=== PATIENT | female | born 1965 | race Caucasian/White ===

== ENCOUNTER → 2017-04-15 | Outpatient (CLI) | payer BC, OTHER | END | disposition home or self-care (01) | LOC: C.RDSM 18:53 | PROVIDERS: ATTEND Physical Medicine & Rehabilitation Sports Medicine | DX: M25.561 Pain in right knee (principal) ==

== ENCOUNTER 2019-02-02 04:56 | Inpatient (IN) ==
--- NOTE | 2018-12-29 15:30 | PAT Medication Instructions ---
Medication Instructions Date of Service December 29, 2018 Home Medications Calcium 1 tab PO BID [id number]-eazakvrceogdv-[id number] 1 cap PO Q6H PRN cyanocobalamin (vitamin B-12) 5,000 mcg PO WK fentanyl 1 patch TRANSDERMAL Q72H fentanyl 1 patch TRANSDERMAL Q72H furosemide 20 mg PO QAM PRN hydrocodone-acetaminophen 1 tab PO Q6H PRN lisinopril 10 mg PO QAM multivitamin 1 tab PO BID pantoprazole 40 mg PO QPM potassium chloride 20 meq PO BID topiramate 100 mg PO BID Continue as directed fentanyl 1 patch TRANSDERMAL Q72H (avoid placement over surgery site) fentanyl 1 patch TRANSDERMAL Q72H(avoid placement over surgery site) ASK your surgeon for instructions cngjzszoeh-clfttmxeygfzk-wada 1 cap PO Q6H PRN DO NOT take the morning of surgery Calcium 1 tab PO BID cyanocobalamin (vitamin B-12) 5,000 mcg PO WK furosemide 20 mg PO QAM PRN lisinopril 10 mg PO QAM multivitamin 1 tab PO BID potassium chloride 20 meq PO BID Take morning of surgery With a small sip of water, OTHERWISE NOTHING TO EAT OR DRINK AFTER MIDNIGHT: hydrocodone-acetaminophen 1 tab PO Q6H PRN (okay to take up to 4 hours prior to surgery if needed) topiramate 100 mg PO BID Take evening before surgery Calcium 1 tab PO BID hydrocodone-acetaminophen 1 tab PO Q6H PRN (if needed) multivitamin 1 tab PO BID pantoprazole 40 mg PO QPM potassium chloride 20 meq PO BID topiramate 100 mg PO BID Other Notes If you have any questions please call us at [phone] or [phone] or [phone] or [phone]
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
--- NOTE | 2018-12-30 12:38 | XRay Report ---
XR chest Pre-admission PA/Lat CLINICAL HISTORY: Preoperative chest COMPARISON STUDY: No previous studies for comparison. FINDINGS: The heart is normal in size. There is mild elevation/eventration of the left hemidiaphragm posteriorly. There is minor basilar atelectasis/scarring. There is no failure. There are no areas of parenchymal consolidation to indicate pneumonia. There are no significant pleural effusions. IMPRESSION: No active disease in the chest. Electronically signed by: Rosas Woods M.D. 12/30/2018 12:37 PM
[2018-12-30 13:07] LABS: Basophils # (auto) 0.03 K/uL (0-0.2); Basophils % (auto) 0.5 %; Eosinophils # (auto) 0.17 K/uL (0-0.5); Eosinophils % (auto) 2.8 %; Hematocrit (blood only) 41.7 % (37-47); Hemoglobin 13.8 g/dL (12.0-16.0); Immature Granulocytes # (auto) 0.01 K/uL (0.00-0.02); Immature Granulocytes % (auto) 0.2 %; Lymphocytes # (auto) 2.66 K/uL (1.2-3.4); Lymphocytes % (auto) 43.2 %; Mean Corpuscular Hemoglobin 30.6 pg (25-34); Mean Corpuscular Hgb Conc 33.1 g/dL (32-36); Mean Corpuscular Volume 92.5 fL (80-100); Mean Platelet Volume 9.6 fL (7.4-10.4); Monocytes # (auto) 0.34 K/uL (0.11-0.59); Monocytes % (auto) 5.5 %; Neutrophils # (auto) 2.95 K/uL (1.4-6.5); Neutrophils % (auto) 47.8 %; Platelet Count 261 K/uL (130-400); RDW Coefficient of Variation 12.9 % (11.5-14.5); RDW Standard Deviation 43.4 fL (36.4-46.3); Red Blood Count 4.51 M/uL (4.2-5.4); White Blood Count 6.16 K/uL (4.8-10.8)
[2018-12-30 13:12] LABS: Appearance Urine Clear (Clear); Bilirubin Urine Negative (Negative); Blood Urine Negative (Negative); Color Urine Yellow; Glucose Urine UA Negative (Negative); Ketones Urine Negative (Negative); Leukocyte Esterase Urine Negative (Negative); Nitrite Urine Negative (Negative); Protein Urine Negative (Negative); Urobilinogen Urine Negative (Negative)
[2018-12-30 13:14] LABS: Albumin Level 3.5 gm/dl (3.4-5.0); BUN Creatinine Ratio 18.7 (10-20); Creatinine Clr Calc Pharmacy 54.9 ml/min; Est GFR (African American) 56.1; Est GFR (Non-African American) 48.4
[2018-12-30 13:17] LABS: Estimated Average Glucose 103 mg/dl; Hemoglobin A1C 5.2 % (4.5-5.6)
[2018-12-30 13:27] LABS: Partial Thromboplastin Ratio 1.1; Partial Thromboplastin Time 30.2 Seconds (21.0-31.0); Prothrombin Time 10.7 Seconds (9.0-12.0)
--- NOTE | 2019-02-01 21:41 | History and Physical Report ---
DATE OF ADMISSION: 02/02/2019 CHIEF COMPLAINT: Chronic right knee pain. HISTORY OF PRESENT ILLNESS: This is a 53-year-old female patient of Dr. Quintanilla'juan carlos complaining of chronic right knee pain, longstanding, now progressively getting worse. The patient has failed conservative treatment including intra-articular injections, viscosupplementation, home exercise program and the use of a brace. The patient has increased pain with weightbearing activities and her pain does interfere with her activities of daily living. The patient has been diagnosed with end-stage osteoarthritis per clinical and radiographic exams. The patient wished to proceed with a right total knee arthroplasty. PAST MEDICAL HISTORY: History of DVT, sciatica, acid reflux, obesity, dental issues, nonfunctioning left kidney. SOCIAL HISTORY: Nonsmoker, nondrinker. PAST SURGICAL HISTORY: Cholecystectomy and hysterectomy. FAMILY HISTORY: Noncontributory. REVIEW OF SYSTEMS: Chronic right knee pain, otherwise denies any shortness of breath, chest pain, nausea, vomiting or any other joint complaints. MEDICATIONS: 1. Fentanyl patch 100 mcg per hour 1 patch every 72 hours for pain. 2. Fentanyl patch 50 mcg per hour 1 patch every 3 days as needed. 3. Somis every 8 hours as needed. 4. Lisinopril 10 mg daily. 5. Potassium chloride 20 mEq twice daily. 6. Topamax 100 mg 1 twice daily. 7. Fioricet 50/325/40 mg 1 tablet every 4 hours as needed for headaches. 8. Protonix 40 mg twice daily. 9. Omeprazole 20 mg daily. 10. Colace 100 mg daily. 11. Nystop applied to affected area topically 3 times daily. 12. Lasix 20 mg 1-2 tablets as needed. 13. Cymbalta 30 mg daily. 14. Nystatin 100,000 units per gram apply topically to affected area twice daily. 15. Vitamin B12 1000 mcg daily, sublingual. ALLERGIES: No known drug allergies. PHYSICAL EXAMINATION: GENERAL: Well-developed, well-nourished, 53-year-old female in no acute distress. She is alert and oriented x3 and pleasant. HEENT: Normocephalic, atraumatic. Extraocular motions are intact. Pupils are equal and reactive to light. HEART: Regular rate and rhythm, no murmurs. LUNGS: Clear. ABDOMEN: Soft and nontender. Bowel sounds present. EXTREMITIES: Right knee limited range of motion of negative 10-120 degrees. She has a varus deformity with medial joint line tenderness. She has crepitation and pain with range of motion. She has 5/5 strength. NEUROLOGIC: Neurovascularly, she is intact in her right lower extremity. DIAGNOSES: Right knee end-stage osteoarthritis, history of deep venous thrombosis, sciatica, acid reflux, obesity, dental issues, and a nonfunctioning left kidney. PLAN: The patient was advised of her diagnosis. Indications, risks, benefits, postop course have all been reviewed. The patient wished to proceed with a right total knee arthroplasty. Necessary consent forms, preoperative testing and clearances will be obtained.
[2019-02-02] MEDS ORDERED: FAMOTIDINE 20 MG TAB PO SCH (06:00)
[2019-02-02] MEDS ORDERED: GABAPENTIN 600 MG DOSE PO SCH (06:00)
[2019-02-02] MEDS ORDERED: METOCLOPRAMIDE HCL 10 MG TABLET PO SCH (06:00)
[2019-02-02] MEDS ORDERED: ROPIVACAINE 0.5% HCL/PF 150 MG, BUPIVACAINE 0.5% MPF 30 ML, EPINEPHrine 30MG/30ML (OR U... INFIL SCH (06:00)
[2019-02-02] MEDS ORDERED: dexAMETHasone 4 MG TAB PO SCH (06:00)
[2019-02-02] MEDS ORDERED: LR 500ML BOLUS, THEN 15ML/HR IV SCH (06:00)
[2019-02-02] MEDS ORDERED: ACETAMINOPHEN 500 MG TAB PO SCH (06:00)
[2019-02-02] MEDS ORDERED: CEFAZOLIN 2000MG 2,000 MG/15 ML SYR IV SCH (06:00)
[2019-02-02] MEDS ORDERED: MIDAZOLAM HCL 1 MG/ML 2ML VIAL ONE ×2 (06:35→07:11)
[2019-02-02] MEDS ORDERED: fentaNYL citrate 100 MCG/2 ML VIAL ONE (06:35)
[2019-02-02] MEDS ORDERED: ONDANSETRON INJ 2 MG/ML 2 ML VIAL IV PRN ×2 (06:38→10:56)
[2019-02-02] MEDS ORDERED: fentaNYL citrate 100 MCG/2 ML VIAL IV PRN (06:38)
[2019-02-02] MEDS ORDERED: ATROPINE SULFATE 0.1 MG/ML 10ML SYR IV PRN (06:38)
[2019-02-02] MEDS ORDERED: ePHEDrine sulfate 50 MG/ML AMP IV PRN (06:38)
[2019-02-02] MEDS ORDERED: BUPIVACAINE 0.5 % 5 MG/1 ML PF 10ML VIAL ONE (06:39)
[2019-02-02] MEDS ORDERED: BACITRACIN INJ 50,000 UNIT VIAL ONE (06:42)
[2019-02-02] MEDS ORDERED: ORTHO JOINT ANESTHETIC ONE (06:42)
[2019-02-02] MEDS ORDERED: ONDANSETRON INJ 2 MG/ML 2 ML VIAL ONE (06:43)
[2019-02-02] MEDS ORDERED: PROPOFOL IV EMULSION 10 MG/ML 20 ML VIAL IV ONE (06:43)
[2019-02-02] MEDS ORDERED: LIDOCAINE HCL 2% 2 ML VIAL/AMP(20MG/ML) INFIL ONE (06:43)
--- NOTE | 2019-02-02 07:08 | History & Physical Bridge Note ---
Date of Service February 02, 2019 History & Physical Bridge Note I have examined the patient, reviewed the History & Physical and in the interval since the performance of the History & Physical I have noted the following changes of clinical significance: no changes noted
[2019-02-02] MEDS ORDERED: KETAMINE HCL INJ 50 MG/ML 10 ML VIAL ONE (07:28)
--- NOTE | 2019-02-02 08:54 | Post Operative Brief Note ---
Immediate Post Op Note v1 Date of Surgery February 02, 2019 Pre & Post Diagnosis Operation Date: 02/02/19 07:00 Pre-Op Diagnosis: RIGHT KNEE OSTEOARTHRITIS, obesity BMI 38.3 Post-Op Diagnosis: RIGHT KNEE OSTEOARTHRITIS, obesity BMI 38.3 I identified the patient and participated in the time-out.: Yes Procedure Operation Date: 02/02/19 07:00 Actual Procedures p Right Total Knee Arthroplasty(Right), superficial wound VAC, increased difficulty BMI 38.3- Bryce Quintanilla MD Surgeon Bryce Quintanilla MD Flavoring Machine Operator Jaime BARNES Estimated Blood Loss 5 Findings Consistent with Post-Op Diagnosis Specimens Bone cuts Drains Hemovac Drain Anesthesia Type MAC Spinal Regional Complications none Disposition Accompanied Patient To Recovery: No Disposition: Recovery Room Overlapping Procedure I was present for: the critical portions of procedure.
--- NOTE | 2019-02-02 09:11 | Operative Report ---
Post Operative Report Pre & Post Diagnosis Operation Date: 02/02/19 07:00 Pre-Op Diagnosis: RIGHT KNEE OSTEOARTHRITIS, obesity BMI 38.3, lymphedema chronic Post-Op Diagnosis: RIGHT KNEE OSTEOARTHRITIS, obesity BMI 38.3, lymphedema chronic I identified the patient and participated in the time-out.: Yes Procedure Operation Date: 02/02/19 07:00 Actual Procedures p Right Total Knee Arthroplasty(Right), superficial wound VAC, increased difficulty obesity BMI 38.3- Bryce Quintanilla MD Surgeon Bryce Quintanilla MD Mechanic Foreman Jaime BARNES Estimated Blood Loss 5 Findings Consistent with Post-Op Diagnosis Specimens Bone cuts Drains 2 Hemovac Anesthesia Type MAC Spinal Regional Complications none Disposition Accompanied Patient To Recovery: No Disposition: Recovery Room Indications 53-year-old female history of obesity lymphedema both lower extremities. Patient's diet lost weight get her BMI under 40. Still has obesity of her legs and chronic lymph edema both lower extremities. Does have a history of DVT in the past. She has very severe osteoarthritis [id number] bilateral knees medial compartment OA right knee and patellofemoral osteoarthritis with tricompartmental changes subluxation of femur on the tibia subchondral cystic changes medial compartment. Description of Procedure Patient taken to the operating room the size under spinal MAC regional anesthesia. Patient was placed supine on the operating table. A pneumatic tourniquet was placed about the obese right upper thigh. The right lower extremity was prepped and draped in sterile fashion. Knee exam demonstrated 5- 115 degrees range of motion. No instability. Obesity with lymphedema below the knee mainly both lower extremities. The leg was elevated exsanguinated with an Esmarch bandage and pneumatic tourniquet was raised to 350 millimeters of mercury. Skin incised sharply in longitudinal fashion. Subcutaneous flaps tres vated. Incision was made through the medial retinaculum extending up in the mid third of the quadriceps tendon and down to the medial tibial tubercle. Intra- articular findings demonstrated tricompartmental osteoarthritis [id number] medial compartment with large subchondral cystic changes in the femur and the tibia large loose body anterior tibial spine. The Really Simple triathlon total knee arthroplasty system was used. To expose the knee the infrapatellar fat pad was resected. The meniscal remnants and cruciate ligaments were resected. The anterior fat pad over the femur in the area of the anterior flange of the femoral component was resected. Lateral synovial bands release. The femur was exposed. An intramedullary drill hole was made into the canal. A guide daren was placed. Distal femoral cutting guide was adjusted to resect a 5 degree valgus cut with 10 millimeters distal femur resected. The knee was extended and a subperiosteal peel lateral release was performed around the patella. Patella width was measured and width was reproduced using a freehand cut technique and a 31 symmetrical patella component. The 3 drill holes were made and the excess lateral facet was beveled off to prevent any impingement. Attention was taken back to the femur which was exposed with retractors and the femoral sizing guide was pinned in position. The drill holes were placed in 3 of external rotation to match epicondylar axis. Femur sized for a 4 component. The 4-in-1 cutting block was placed and then the anterior posterior and chamfer cuts are made. The tibia was then subluxed. The external tibial cutting guide was just to make a perpendicular cut to the long axis of the tibia below the most deficient bone loss side. A lamina spreader box operator was used and the flexion extension gaps were balanced. All posterior osteophytes removed. All meniscal remnants were resected. The large cysts in the medial femoral condyle and the tibia anterior medially were curetted out. The tibia exposed and the trial tibial component size 3 was externally rotated in line with the tibial tubercle and pinned in position. The punch for stem was used. The notch cutting device was centered appropriately and the femoral notch cut was made. The femoral trial was inserted. Trial tibial inserts were placed and size 11 gave balanced ligaments through flexion and extension. Patella tracking was assessed. The patella tracked centrally. The trial components were then removed and the orthomix anesthetic cocktail was injected per protocol. The knee was then copiously irrigated with pulsatile lavage antibiotic solution. Final components were then cemented with Simplex cement including cementing the bone cysts. Final components were size 4 posterior stabilized right [place] triathlon femoral component, size 3 primary tibial baseplate, 3 x 11 mm X3 polyethylene tibial bearing insert, S 31 x 9 mm symmetrical patella. While the cement cured the Betadine soak was used per protocol. After cement cured further pulsatile lavage irrigation performed and 2 Hemovac drains were brought out laterally. The quadriceps tendon and medial retinaculum were closed with figure of 8 #1 Vicryl sutures. The knee was taken through full range of motion and the repair was secure. The subcutaneous tissues were closed with 2-0 Vicryl sutures. Skin was closed with shasha. A Julianna superficial wound VAC was applied applied. Patient procedure well. Jaime BARNES was my physician library media assistant who assisted in patient positioning prepping and draping,leg positioning ,soft tissue retraction and instrument management and participated in the closing and application superficial wound VAC and will participate in postoperative care of the patient. It was an increased level difficulty due to her obesity which added about 15 to 20 minutes of the procedure. The patient tolerated the procedure well. I attest to the content of the Intraoperative Record and any orders documented therein. Any exceptions are noted below.
[2019-02-02] MEDS ORDERED: CONSULT PHARMACY PRN (09:30)
--- NOTE | 2019-02-02 09:56 | XRay Report ---
XR knee RT 1 or 2V routine HISTORY: 53 years-old Female Surgical Post Op right knee total joint arthroplasty COMPARISON: Right knee radiographs 04/15/2017 TECHNIQUE: 2 views of the right knee FINDINGS: Right knee total joint arthroplasty and patella resurfacing. Anterior midline skin shasha are noted along with expected postsurgical soft tissue swelling and deep tissue air. Surgical drainage catheter noted. No acute fracture, dislocation or opaque foreign body. IMPRESSION: Satisfactory alignment of the right knee total joint arthroplasty. The above report was generated using voice recognition software. It may contain grammatical, syntax o r spelling errors. Electronically signed by: Jarad Chowdhury M.D. 02/02/2019 9:54 AM
--- NOTE | 2019-02-02 10:26 | Anesthesiology Progress Note ---
Date of Service February 02, 2019 Anesthesia Post Procedure Vital Signs Vital Signs: Temp Pulse Pulse Resp BP Pulse Ox 02/02/19 10:15 97.5 F L 70 12 129/74 98 02/02/19 10:05 97.5 F L 71 16 133/85 95 02/02/19 09:54 80 12 156/84 H 96 02/02/19 09:45 83 12 146/85 H 96 02/02/19 09:35 85 12 149/82 H 96 02/02/19 09:25 83 13 131/75 97 02/02/19 09:17 97.2 F L 88 16 134/80 94 02/02/19 05:30 97.7 F 66 20 143/87 H 98 Pain Intensity Right Knee: Pain Intensity: 0 Lower Back: Pain Intensity: 5 Transfer of Care Handoff Completed per policy Notes Mental Status: alert / awake / arousable and participated in evaluation Patient Amnestic to Procedure: Yes Nausea / Vomiting: adequately controlled Pain: adequately controlled Airway Patency, RR, SpO2: stable & adequate BP & HR: stable & adequate Hydration State: stable & adequate Neuraxial Anesthesia: was administered and sensory block is resolving Anesthetic Complications: no major complications apparent and Pt Satisfied with anesthetic care
[2019-02-02] MEDS ORDERED: SODIUM CHLORIDE 0.9% 1000ML 1,000 ML IV SCH (10:56)
[2019-02-02] MEDS ORDERED: BISACODYL 10 MG SUPP PR PRN (10:56)
[2019-02-02] MEDS ORDERED: NALOXONE HCL 0.4 MG/1 ML VIAL/CARP IV PRN (10:56)
[2019-02-02] MEDS ORDERED: MAGNESIUM HYDROXIDE SUSP 30 ML UDC PO PRN (10:56)
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
[2019-02-02] MEDS: CHECK FENTANYL PATCH PLACEMENT SCH ×4 (13:19→23:18)
[2019-02-02] MEDS: HYDROCODONE/ACETAMINOPHEN 7.5/325MG TAB PO PRN ×2 (15:27→23:16)
[2019-02-02] MEDS: CEFAZOLIN 2000MG 2,000 MG/15 ML SYR IV SCH ×2 (15:38→23:16)
[2019-02-02] MEDS ORDERED: fentaNYL 100 MCG/HR TDSY TD SCH (16:00)
[2019-02-02] MEDS ORDERED: fentaNYL 50 MCG/HR TDSY TD SCH (16:00)
[2019-02-02] MEDS: HYDROmorphone INJ 0.5 MG/0.5 ML SYR IV PRN (18:52)
[2019-02-02] MEDS: PANTOprazole 40 MG TAB PO SCH (18:53)
[2019-02-02] MEDS ORDERED: BUTALBITAL/ACETAMIN/CAFFEINE TAB PO PRN (19:06)
[2019-02-02] MEDS: DOCUSATE SODIUM 100 MG CAP PO SCH (20:14)
[2019-02-02] MEDS: CALCIUM 600MG + VIT D 400 IU TAB PO SCH (20:14)
[2019-02-02] MEDS: SENNA 8.6 MG TAB PO SCH (20:15)
[2019-02-02] MEDS: MULTIVITAMIN TAB PO SCH (20:16)
[2019-02-02] MEDS: POTASSIUM CHLORIDE 20 MEQ TABCR PO SCH (20:16)
[2019-02-02] MEDS: TOPIRAMATE 100 MG TAB PO SCH (20:17)
[2019-02-03] MEDS: HYDROmorphone INJ 0.5 MG/0.5 ML SYR IV PRN (03:04)
[2019-02-03 05:59] LABS: Hematocrit (blood only) 35.5 % (37-47); Hemoglobin 11.9 g/dL (12.0-16.0); Mean Corpuscular Hemoglobin 31.2 pg (25-34); Mean Corpuscular Hgb Conc 33.5 g/dL (32-36); Mean Corpuscular Volume 92.9 fL (80-100); Mean Platelet Volume 9.3 fL (7.4-10.4); Platelet Count 241 K/uL (130-400); RDW Coefficient of Variation 13.3 % (11.5-14.5); RDW Standard Deviation 45.1 fL (36.4-46.3); Red Blood Count 3.82 M/uL (4.2-5.4); White Blood Count 11.15 K/uL (4.8-10.8)
[2019-02-03 06:25] LABS: Calcium 8.9 mg/dl (8.5-10.1); Creatinine Clr Calc Pharmacy 51.8 ml/min; Est GFR (African American) 52.5; Est GFR (Non-African American) 45.3; Potassium 4.2 mmol/L (3.5-5.1)
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
--- NOTE | 2019-02-03 07:48 | Orthopedic Progress Note ---
Date of Service February 03, 2019 Assessment & Plan (1) S/P total knee arthroplasty: POD #1, Right TKA PT/ OT- DVT proph- Eliquis D/C planning- Home with OPPT As per medicine. Subjective POD #1, Doing well. Denies SOB, CP, N/V. Pain controlled well. Wishes OPPT at D/C. Physical Exam Physical Exam: Right knee dressings c/d/i, no drainage, drain in tact. Toes/ ankle mobile. No calf tenderness. N/V+ A&Ox3. Results & Data Vital Signs (Past 12 Hours) Vital Signs Temp Pulse Resp BP Pulse Ox 02/03/19 06:49 36.6 C 58 L 16 132/68 98 02/03/19 03:02 36.6 C 71 18 126/82 96 02/02/19 23:09 36.5 C 70 18 118/71 96
--- NOTE | 2019-02-03 08:07 | Anesthesiology Progress Note ---
Date of Service February 03, 2019 Anesthesia Post Procedure Vital Signs Vital Signs: Temp Pulse Pulse Resp BP Pulse Ox 02/03/19 06:49 36.6 C 58 L 16 132/68 98 02/03/19 03:02 36.6 C 71 18 126/82 96 02/02/19 23:09 36.5 C 70 18 118/71 96 02/02/19 19:29 36.8 C 82 16 111/73 97 02/02/19 14:58 36.4 C L 68 16 109/74 97 02/02/19 13:34 36.4 C L 54 L 17 120/78 98 02/02/19 11:35 64 16 126/87 100 02/02/19 11:05 36.5 C 77 16 127/81 99 02/02/19 10:35 36.4 C L 65 14 130/84 98 02/02/19 10:25 36.4 C L 55 L 12 129/74 98 02/02/19 10:15 36.4 C L 70 12 122/94 98 02/02/19 10:05 36.4 C L 71 16 133/85 95 02/02/19 09:54 80 12 156/84 H 96 02/02/19 09:45 83 12 146/85 H 96 02/02/19 09:35 85 12 149/82 H 96 02/02/19 09:25 83 13 131/75 97 02/02/19 09:17 36.2 C L 88 16 134/80 94 Pain Intensity Right Knee: Pain Intensity: 0 Notes Mental Status: alert / awake / arousable and participated in evaluation Nausea / Vomiting: adequately controlled Pain: adequately controlled Airway Patency, RR, SpO2: stable & adequate BP & HR: stable & adequate Hydration State: stable & adequate Neuraxial Anesthesia: sensory block resolved Anesthetic Complications: no major complications apparent
[2019-02-03] MEDS: CHECK FENTANYL PATCH PLACEMENT SCH ×6 (08:50→23:01)
[2019-02-03] MEDS: MULTIVITAMIN TAB PO SCH ×2 (08:51→19:50)
[2019-02-03] MEDS: DOCUSATE SODIUM 100 MG CAP PO SCH ×2 (08:51→19:50)
[2019-02-03] MEDS: CALCIUM 600MG + VIT D 400 IU TAB PO SCH ×2 (08:51→19:49)
[2019-02-03] MEDS: POTASSIUM CHLORIDE 20 MEQ TABCR PO SCH ×2 (08:51→19:49)
[2019-02-03] MEDS: APIXABAN 2.5 MG TAB PO SCH ×2 (08:51→19:49)
[2019-02-03] MEDS: TOPIRAMATE 100 MG TAB PO SCH ×2 (08:51→19:48)
[2019-02-03] MEDS: HYDROCODONE/ACETAMINOPHEN 7.5/325MG TAB PO PRN (08:58)
[2019-02-03] MEDS ORDERED: fentaNYL 100 MCG/HR TDSY TD SCH (09:00)
[2019-02-03] MEDS ORDERED: fentaNYL 50 MCG/HR TDSY TD SCH (09:00)
[2019-02-03] MEDS ORDERED: MULTIVITAMIN TAB PO SCH (09:00)
[2019-02-03] MEDS: TRAMADOL HCL 50 MG TABLET PO PRN ×3 (10:39→19:45)
[2019-02-03] MEDS ORDERED: CHECK FENTANYL PATCH PLACEMENT SCH (16:00)
[2019-02-03] MEDS: PANTOprazole 40 MG TAB PO SCH ×2 (16:02→19:52)
[2019-02-03] MEDS: SENNA 8.6 MG TAB PO SCH (19:48)
[2019-02-04] MEDS: TRAMADOL HCL 50 MG TABLET PO PRN ×2 (00:46→05:54)
[2019-02-04 05:43] LABS: Hematocrit (blood only) 34.5 % (37-47); Hemoglobin 11.2 g/dL (12.0-16.0); Mean Corpuscular Hemoglobin 30.4 pg (25-34); Mean Corpuscular Hgb Conc 32.5 g/dL (32-36); Mean Corpuscular Volume 93.8 fL (80-100); Mean Platelet Volume 9.8 fL (7.4-10.4); Platelet Count 216 K/uL (130-400); RDW Coefficient of Variation 13.6 % (11.5-14.5); RDW Standard Deviation 46.5 fL (36.4-46.3); Red Blood Count 3.68 M/uL (4.2-5.4); White Blood Count 9.33 K/uL (4.8-10.8)
[2019-02-04 06:15] LABS: BUN Creatinine Ratio 15.7 (10-20); Calcium 9.1 mg/dl (8.5-10.1); Creatinine Clr Calc Pharmacy 65.1 ml/min; Est GFR (African American) 69.2; Est GFR (Non-African American) 59.7; Potassium 3.9 mmol/L (3.5-5.1)
--- NOTE | 2019-02-04 07:58 | Orthopedic Progress Note ---
Date of Service February 04, 2019 Assessment & Plan (1) S/P total knee arthroplasty: POD #2, Right TKA PT/ OT DVT proph- Sheryl D/C planning- Home with OPPT - Plan for DC to home today after PT As per medicine. Subjective Postop day 2 status post right total knee arthroplasty. Patient is currently sitting up in bed awake and alert. She has no complaints at this time. Pain is fairly well controlled. She denies any shortness of breath, chest pain, lightheadedness. She is hoping to go home today. Physical Exam Physical Exam: Prevena dressing is clean, dry, and intact. Calves are soft and nontender. Neurovascular is intact. Toes are mobile. Mild bruising noted consistent with surgery. Results & Data Vital Signs (Past 12 Hours) Vital Signs Temp Pulse Pulse Resp BP Pulse Ox 02/04/19 07:38 36.5 C 84 14 156/85 H 96 02/03/19 22:50 36.9 C 70 16 154/80 H 97 Laboratory Results Laboratory Results WBC 9.33 K/uL (4.8-10.8) 02/04/19 04:34 RBC 3.68 M/uL (4.2-5.4) L 02/04/19 04:34 Hgb 11.2 g/dL (12.0-16.0) L 02/04/19 04:34 Hct 34.5 % (37-47) L 02/04/19 04:34 MCV 93.8 fL (80-100) 02/04/19 04:34 MCH 30.4 pg (25-34) 02/04/19 04:34 MCHC 32.5 g/dL (32-36) 02/04/19 04:34 RDW Std Deviation 46.5 fL (36.4-46.3) H 02/04/19 04:34 RDW Coeff of Vicente 13.6 % (11.5-14.5) 02/04/19 04:34 Plt Count 216 K/uL (130-400) 02/04/19 04:34 MPV 9.8 fL (7.4-10.4) 02/04/19 04:34 Immature Gran % (Auto) 0.2 % 12/30/18 11:59 Neut % (Auto) 47.8 % 12/30/18 11:59 Lymph % (Auto) 43.2 % 12/30/18 11:59 [place] % (Auto) 5.5 % 12/30/18 11:59 Eos % (Auto) 2.8 % 12/30/18 11:59 Baso % (Auto) 0.5 % 12/30/18 11:59 Immature Gran # (Auto) 0.01 K/uL (0.00-0.02) 12/30/18 11:59 Neut # (Auto) 2.95 K/uL (1.4-6.5) 12/30/18 11:59 Lymph # (Auto) 2.66 K/uL (1.2-3.4) 12/30/18 11:59 [place] # (Auto) 0.34 K/uL (0.11-0.59) 12/30/18 11:59 Eos # (Auto) 0.17 K/uL (0-0.5) 12/30/18 11:59 Baso # (Auto) 0.03 K/uL (0-0.2) 12/30/18 11:59 PT 10.7 Seconds (9.0-12.0) 12/30/18 11:59 INR 1.0 (0.9-1.1) 12/30/18 11:59 APTT 30.2 Seconds (21.0-31.0) 12/30/18 11:59 PTT Ratio 1.1 12/30/18 11:59 Sodium 137 mmol/L (136-145) 02/04/19 04:34 Potassium 3.9 mmol/L (3.5-5.1) 02/04/19 04:34 Chloride 104 mmol/L (98-107) 02/04/19 04:34 Carbon Dioxide 29 mmol/L (21-32) 02/04/19 04:34 Anion Gap 4.0 (3-11) 02/04/19 04:34 BUN 17 mg/dl (7-18) 02/04/19 04:34 Creatinine 1.05 mg/dl (0.6-1.2) 02/04/19 04:34 Est Cr Clr Drug Dosing 65.1 ml/min 02/04/19 04:34 Est GFR ( Amer) 69.2 02/04/19 04:34 Est GFR (Non-Af Amer) 59.7 02/04/19 04:34 BUN/Creatinine Ratio 15.7 (10-20) 02/04/19 04:34 Glucose 99 mg/dl (70-99) 02/04/19 04:34 Estimat Average Glucose 103 mg/dl 12/30/18 11:59 Hemoglobin A1c 5.2 % (4.5-5.6) 12/30/18 11:59 Calcium 9.1 mg/dl (8.5-10.1) 02/04/19 04:34 Iron 28 mcg/dl (35-150) L 02/03/19 05:31 TIBC 208 mcg/dl (250-450) L 02/03/19 05:31 Ferritin 232.0 ng/ml (8-388) 02/03/19 05:31 Albumin 3.5 gm/dl (3.4-5.0) 12/30/18 11:59 Urine Color Yellow 12/30/18 11:59 Urine Appearance Clear (Clear) 12/30/18 11:59 Urine pH 6.0 (4.5-7.5) 12/30/18 11:59 Ur Specific Lindsay 1.020 (1.000-1.030) 12/30/18 11:59 Urine Protein Negative (Negative) 12/30/18 11:59 Urine Glucose (UA) Negative (Negative) 12/30/18 11:59 Urine Ketones Negative (Negative) 12/30/18 11:59 Urine Blood Negative (Negative) 12/30/18 11:59 Urine Nitrite Negative (Negative) 12/30/18 11:59 Urine Bilirubin Negative (Negative) 12/30/18 11:59 Urine Urobilinogen Negative (Negative) 12/30/18 11:59 Ur Leukocyte Esterase Negative (Negative) 12/30/18 11:59 Hepatitis C Ab Screen Neg (Neg) 02/03/19 05:30 Blood Type O Positive 12/30/18 11:59 Antibody Screen NEGATIVE 12/30/18 11:59
[2019-02-04] MEDS: CHECK FENTANYL PATCH PLACEMENT SCH ×2 (08:18)
[2019-02-04] MEDS: APIXABAN 2.5 MG TAB PO SCH (08:19)
[2019-02-04] MEDS: CALCIUM 600MG + VIT D 400 IU TAB PO SCH (08:19)
[2019-02-04] MEDS: POTASSIUM CHLORIDE 20 MEQ TABCR PO SCH (08:19)
[2019-02-04] MEDS: TOPIRAMATE 100 MG TAB PO SCH (08:19)
[2019-02-04] MEDS: MULTIVITAMIN TAB PO SCH (08:19)
[2019-02-04] MEDS: DOCUSATE SODIUM 100 MG CAP PO SCH (08:19)
[2019-02-04] MEDS: PANTOprazole 40 MG TAB PO SCH (08:20)
[2019-02-04] MEDS: HYDROCODONE/ACETAMINOPHEN 7.5/325MG TAB PO PRN (08:24)
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
[2019-02-06] MEDS ORDERED: CHECK FENTANYL PATCH PLACEMENT SCH (08:59)
[2019-02-08] MEDS ORDERED: CYANOCOBALAMIN (VITAMIN B-12) 2,500 MCG TAB.SUBL SL SCH (09:00)
--- NOTE | 2019-02-16 23:09 | Discharge Summary ---
HISTORY OF PRESENT ILLNESS: This is a 53-year-old female patient of Dr. Quintanilla'juan carlos complaining of chronic right knee pain, longstanding, now progressively getting worse. She was diagnosed with end-stage osteoarthritis and has failed conservative treatment. She elected to proceed with a right total knee arthroplasty. PAST MEDICAL HISTORY: DVT, sciatica, acid reflux, obesity, dental issues and a nonfunctioning left kidney. POSTOPERATIVE COURSE: The patient underwent a right total knee arthroplasty on 02/02/2019. She was followed closely with medical consultation, DVT prophylaxis in the form of Eliquis per her family physician, pain control and physical therapy. The patient did very well postoperatively and was discharged home with outpatient physical therapy on postoperative day #2. PHYSICAL EXAMINATION ON DISCHARGE: Superficial wound VAC was clean, dry and intact and it was holding suction well. There was no redness, no drainage. Calves were soft and nontender. Negative Homans sign. Toes and ankle were mobile. Neurologically and neurovascularly, she was intact in her right lower extremity. DIAGNOSES: Status post right total knee arthroplasty with superficial wound VAC application, history of deep venous thrombosis, sciatica, acid reflux, obesity, dental issues and a nonfunctioning left kidney. PLAN: The patient was discharged home with outpatient physical therapy. She will continue her preadmission medications with the addition of pain medications and Eliquis for DVT prophylaxis per her family physician. The patient will follow up as an outpatient as scheduled.
== END 2019-02-04 13:20 | disposition home or self-care (01) | DRG 470 ==
LOC: PAT 04:56 → 3E 09:26

== ENCOUNTER 2021-04-27 11:44 | Observation (INO) ==
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
[~2021-04-27 11:44] MED LIST: BUPIVACAINE 0.5 % 5 MG/1 ML PF 10ML VIAL ONE; LR 500ML BOLUS, THEN 15ML/HR IV SCH; ROPIVACAINE 0.5% 5 MG/ML 30 ML VIAL ONE; ROPIVACAINE 0.5% HCL/PF 150 MG, BUPIVACAINE 0.75% MPF 20 ML, EPINEPHrine 0.15 MG, Ketor... INFIL SCH
[2021-04-27] MEDS ORDERED: fentaNYL citrate 100 MCG/2 ML VIAL IV PRN (12:55)
[2021-04-27] MEDS ORDERED: ePHEDrine sulfate 50 MG/ML AMP IV PRN (12:55)
[2021-04-27] MEDS ORDERED: PROPOFOL IV EMULSION 10 MG/ML 20 ML VIAL IV ONE (12:55)
[2021-04-27] MEDS ORDERED: ATROPINE SULFATE 0.1 MG/ML 10ML SYR IV PRN (12:55)
[2021-04-27] MEDS ORDERED: MIDAZOLAM HCL 1 MG/ML 2ML VIAL ONE (12:55)
[2021-04-27] MEDS ORDERED: ONDANSETRON INJ 2 MG/ML 2 ML VIAL ONE ×3 (12:55→15:28)
[2021-04-27] MEDS ORDERED: ONDANSETRON INJ 2 MG/ML 2 ML VIAL IV PRN ×2 (12:55→19:32)
--- NOTE | 2021-04-27 14:36 | History & Physical Bridge Note ---
Date of Service April 27, 2021 History & Physical Bridge Note I have examined the patient, reviewed the History & Physical and in the interval since the performance of the History & Physical I have noted the following changes of clinical significance: no changes noted
[2021-04-27] MEDS ORDERED: ORTHO JOINT ANESTHETIC ONE (14:44)
[2021-04-27] MEDS ORDERED: ceFAZolin 2000MG 2,000 MG/15 ML SYR IV ONE (15:00)
--- NOTE | 2021-04-27 17:51 | Operative Report ---
Post Operative Report Pre & Post Diagnosis Operation Date: 04/27/21 13:40 Pre-Op Diagnosis: Left knee osteoarthritis, morbid obesity BMI 45.3, chronic lymphedema lower extremity Post-Op Diagnosis: Left knee osteoarthritis, morbid obesity BMI 45.3, chronic lymphedema lower extremity I identified the patient and participated in the time-out.: Yes Procedure Operation Date: 04/27/21 13:40 Actual Procedures p Left total knee arthroplasty(Left), lateral release, increased difficulty more obesity BMI 45.3, superficial wound VAC application Bryce Quintanilla MD Surgeon Bryce Quintanilla MD Corporate Physical Security Supervisor Rosendo BARNES Estimated Blood Loss 15 Findings Consistent with Post-Op Diagnosis Specimens Bone cuts Drains 2 Hemovac Anesthesia Type MAC Spinal Regional Complications none Disposition Disposition: Recovery Room Indications 56-year-old female with chronic left knee pain failed conservative management. She has had progressive osteoarthritis in her knee over the years and now has gnuy-oa-ivai lateral compartment with tricompartmental osteoarthritic changes. Patient had successful right knee replacement. Patient has morbid obesity and chronic lymphedema. No major complications with prior surgery. Description of Procedure Patient taken to the operating room the size under spinal MAC regional block anesthesia. Patient was placed supine on the operating table. A pneumatic tourniquet was placed about the left clearly obese upper thigh. The left lower extremity was prepped and draped in sterile fashion. Knee exam demonstrated valgus knee less than 10 degree flexion contracture flexion to 115 degrees. There was obesity of the leg knee effusion and no instability. There was lymphedema all the way down to the foot which was chronic no acute cellulitis. The leg was elevated exsanguinated with an Esmarch bandage and pneumatic tourniquet was raised to 350 millimeters of mercury. Skin incised sharply in longitudinal fashion. Deep layer of fat was divided down to the bursa and fascia. Subcutaneous flaps elevated. Incision was made through the medial retinaculum extending up in the mid third of the quadriceps tendon and down to the medial tibial tubercle. Intra-articular findings demonstrated tricompartmental osteoarthritic changes with chronic lateral meniscus tear [id number] lateral compartment no hypoplasia of the lateral femoral condyle tricompartmental and notch osteophytes grade 4 arthritic changes medial femoral condyle grade 3 arthritic changes patellofemoral joint with large patellofemoral osteophytes. Loose bodies were noted. Loose bodies were excised. The [employer] triathlon total knee arthroplasty system was used. To expose the knee the infrapatellar fat pad was resected. The meniscal remnants and cruciate ligaments were resected. The anterior fat pad over the femur in the area of the anterior flange of the femoral component was resected. Lateral synovial bands release. The femur was exposed. An intramedullary drill hole was made into the canal. A guide daren was placed. Distal femoral cutting guide was adjusted to resect a 6 degree valgus cut with a millimeters distal femur resected. The knee was extended and a subperiosteal peel lateral release was performed around the patella. Patella width was measured and width was reproduced using a freehand cut technique and a 29 x 8 symmetrical patella component. The 3 drill holes were made and the excess lateral facet was beveled off to prevent any impingement. Attention was taken back to the femur which was exposed with retractors and the femoral sizing guide was pinned in position. The drill holes were placed in 3 of external rotation to match epicondylar axis. Femur sized for a 4 posterior stabilized component. The 4-in-1 cutting block was placed and then the anterior posterior and chamfer cuts are made. The tibia was then subluxed. The external tibial cutting guide was just to make a perpendicular cut to the long axis of the tibia below the most deficient bone loss side. A lamina wood sawyer was used and the flexion extension gaps were balanced. All posterior osteophytes removed. All meniscal remnants were resected. The tibia exposed and the trial tibial component size 3 was externally rotated in line with the tibial tubercle and pinned in position. The punch for stem was used. The notch cutting device was centered appropriately and the femoral notch cut was made. The femoral trial was inserted. Trial tibial inserts were placed and size 11 PS gave balanced ligaments through flexion and extension. Patella tracking was assessed. The patella tracked laterally so a formal lateral release was performed leaving as much synovium intact as possible. Patella tracked centrally afterward. The trial components were then removed and the orthomix anesthetic cocktail was injected per protocol. The knee was then copiously irrigated with pulsatile lavage saline solution. Final components were then cemented with Palacos G cement. Final components were triathlon left posterior stabilized size 4 femoral component, size 3 tibial baseplate primary baseplate with a 11 mm X.3 polyethylene tibial bearing insert and and X.3 polyethylene 29 x 8 symmetrical patella. After the cement cured the Betadine soak was used per protocol. further pulsatile lavage irrigation performed and 2 Hemovac drains were brought out laterally. The quadriceps tendon and medial retinaculum were closed with figure of 8 #1 Vicryl sutures. The knee was taken through full range of motion and the repair was secure and the patella tracked centrally. The knee was stable in extension and flexion and mid flexion. The subcutaneous tissues were closed with 2-0 Vicryl sutures in multiple layers due to the obesity. Skin was closed with shasha. Liu and Acticoat superficial wound VAC was applied. Patient procedure well. There was increased level difficulty due to her obesity BMI 45.3 which added 40 minutes of the procedure. Rosendo BARNES was my physician assistant food service manager who acted as presser first and was an integral part of the entire procedure including his assistance in patient positioning prepping and draping,leg positioning ,soft tissue retraction and instrument management and participated in the closing and applied the superficial wound VAC and will participate in postoperative care of the patient. The patient tolerated the procedure well. I attest to the content of the Intraoperative Record and any orders documented therein. Any exceptions are noted below.
--- NOTE | 2021-04-27 18:52 | Anesthesiology Progress Note ---
Date of Service April 27, 2021 Anesthesia Post Procedure Vital Signs Vital Signs: Temp Pulse Pulse Resp BP BP Pulse Ox 04/27/21 18:45 36.0 C L 60 16 124/67 97 04/27/21 18:35 55 L 12 111/77 97 04/27/21 18:25 57 L 13 128/71 96 04/27/21 18:15 47 L 15 129/72 95 04/27/21 18:05 53 L 15 120/78 95 04/27/21 17:55 81 15 140/87 96 04/27/21 17:46 36.1 C L 90 18 120/76 96 04/27/21 12:20 37 C 82 20 144/82 H 99 Pain Intensity Left Knee: Pain Intensity: 4 Back: Pain Intensity: 6 Transfer of Care Handoff Completed per policy Notes Mental Status: alert / awake / arousable and participated in evaluation Nausea / Vomiting: adequately controlled Pain: adequately controlled Airway Patency, RR, SpO2: stable & adequate BP & HR: stable & adequate Hydration State: stable & adequate Neuraxial Anesthesia: was administered and sensory block is resolving Anesthetic Complications: no major complications apparent and Pt Satisfied with anesthetic care
[2021-04-27] MEDS ORDERED: PANTOprazole 40 MG TAB PO PRN (19:32)
[2021-04-27] MEDS ORDERED: SODIUM CHLORIDE 0.9% 1000ML 1,000 ML IV SCH (19:32)
[2021-04-27] MEDS ORDERED: FUROSEMIDE 20 MG TAB PO PRN (19:32)
[2021-04-27] MEDS ORDERED: BUTALBITAL/ACETAMIN/CAFFEINE TAB PO PRN (19:32)
[2021-04-27] MEDS ORDERED: MAGNESIUM HYDROXIDE SUSP 30 ML UDC PO PRN (19:32)
[2021-04-27] MEDS ORDERED: NALOXONE HCL 0.4 MG/1 ML VIAL/CARP IV PRN (19:32)
[2021-04-27] MEDS ORDERED: SENNA 8.6 MG TAB PO PRN (19:32)
[2021-04-27] MEDS ORDERED: METOCLOPRAMIDE HCL INJ 5 MG/ML 2 ML VIAL IV PRN (19:32)
[2021-04-27] MEDS ORDERED: bisacodyL 10 MG SUPP PR PRN (19:32)
[2021-04-27] MEDS: HYDROmorphone INJ 0.5 MG/0.5 ML SYR IV PRN ×2 (20:05→23:39)
[2021-04-27 20:58] LABS: BUN Creatinine Ratio 17.6 (10-20); Calcium 8.8 mg/dl (8.5-10.1); Creatinine Clr Calc Pharmacy 64.7 ml/min; Est GFR (African American) 65.5 ml/min; Est GFR (Non-African American) 56.5 ml/min; Magnesium 2.1 mg/dl (1.7-2.4); Potassium 4.1 mmol/L (3.5-5.1)
[2021-04-27] MEDS ORDERED: SENNA 8.6 MG TAB PO SCH (21:00)
[2021-04-27] MEDS ORDERED: NON-FORMULARY MEDICATION (Multivitamin Tablet) PO SCH (21:00)
[2021-04-27] MEDS: CALCIUM 600MG + VIT D 400 IU TAB PO SCH (21:31)
[2021-04-27] MEDS: TOPIRAMATE 100 MG TAB PO SCH (21:31)
[2021-04-27] MEDS: POTASSIUM CHLORIDE CRTAB 20 MEQ TABCR PO SCH (21:31)
[2021-04-27] MEDS: DOCUSATE SODIUM 100 MG CAP PO SCH (21:31)
--- NOTE | 2021-04-27 22:13 | XRay Report ---
XR knee LT 1 or 2V routine CLINICAL HISTORY: Surgical Post Op. Status post total knee replacement COMPARISON STUDY: No previous studies for comparison. TECHNIQUE: 2 left knee views FINDINGS: The patient is status post total knee replacement. The prosthetic components are in anatomi c alignment with no acute abnormality seen. Air is present within the soft tissues from the procedure . Skin shasha are seen anteriorly. IMPRESSION: Status post total knee replacement. ACT 112: Negative or not required by law. Electronically signed by: Kishor Dacosta M.D. 04/27/2021 10:12 PM
[2021-04-27] MEDS: HYDROCODONE/ACETAMINOPHEN 7.5/325MG TAB PO PRN (22:21)
[2021-04-27] MEDS: ceFAZolin 2000MG 2,000 MG/15 ML SYR IV SCH (23:38)
[2021-04-28] MEDS: HYDROmorphone INJ 0.5 MG/0.5 ML SYR IV PRN ×2 (03:59→10:50)
[2021-04-28 06:10] LABS: Hematocrit (blood only) 36.3 % (37-47); Hemoglobin 11.8 g/dL (12.0-16.0); Mean Corpuscular Hemoglobin 30.6 pg (25-34); Mean Corpuscular Hgb Conc 32.5 g/dL (32-36); Mean Platelet Volume 9.5 fL (7.4-10.4); Platelet Count 250 K/uL (130-400); RDW Coefficient of Variation 12.9 % (11.5-14.5); RDW Standard Deviation 44.2 fL (36.4-46.3); Red Blood Count 3.86 M/uL (4.2-5.4); White Blood Count 10.94 K/uL (4.8-10.8)
[2021-04-28 06:20] LABS: BUN Creatinine Ratio 18.4 (10-20); Calcium 8.6 mg/dl (8.5-10.1); Creatinine Clr Calc Pharmacy 61.3 ml/min; Est GFR (African American) 61.4 ml/min; Potassium 4.6 mmol/L (3.5-5.1)
[2021-04-28] MEDS: POTASSIUM CHLORIDE CRTAB 20 MEQ TABCR PO SCH (07:50)
[2021-04-28] MEDS: TOPIRAMATE 100 MG TAB PO SCH (07:51)
[2021-04-28] MEDS: DOCUSATE SODIUM 100 MG CAP PO SCH (07:51)
[2021-04-28] MEDS: CALCIUM 600MG + VIT D 400 IU TAB PO SCH (07:51)
[2021-04-28] MEDS: ceFAZolin 2000MG 2,000 MG/15 ML SYR IV SCH (07:55)
[2021-04-28] MEDS: HYDROCODONE/ACETAMINOPHEN 7.5/325MG TAB PO PRN (07:55)
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
[2021-04-28] MEDS ORDERED: PANTOprazole 40 MG TAB PO SCH (09:00)
[2021-04-28] MEDS ORDERED: MULTIVITAMIN TAB PO SCH (09:00)
[2021-04-28] MEDS ORDERED: APIXABAN 2.5 MG TAB PO SCH (09:00)
--- NOTE | 2021-04-28 09:49 | Orthopedic Progress Note ---
Date of Service April 28, 2021 Assessment & Plan (1) Primary osteoarthritis of left knee: Plan: Postop day 1 status post left total knee arthroplasty PT/OT protocols. Weightbearing as tolerated. DVT prophylaxis-apixaban p.o. twice daily, SCDs, SCOTT villa. Pain management as written. DC planning-patient is planning on going home with outpatient physical therapy. Admission and Anticipated Discharge Date Admission Date: April 27, 2021 Subjective Postop day 1 Patient sitting up in her bed at this time awake and alert. She is about to start her physical therapy protocols. No complaints this morning. Pain is controlled. She denies shortness of breath, chest pain, lightheadedness. Physical Exam Physical Exam: Dressings are clean, dry, and intact. Calves are soft and nontender. Neurovascular is intact. Toes are mobile. She has good dorsiflexion and plantarflexion of her left ankle. Hemovac drainage was 100 mL from the previous shift. Results & Data ([facility]) Vital Signs (Past 12 Hours) Vital Signs Temp Pulse Resp BP Pulse Ox 04/28/21 07:45 36.8 C 60 16 115/76 93 04/28/21 02:30 36.8 C 70 16 116/73 98 04/27/21 22:27 36.3 C L 70 14 139/81 98 Laboratory Results Laboratory Results WBC 10.94 K/uL (4.8-10.8) H 04/28/21 05:38 RBC 3.86 M/uL (4.2-5.4) L 04/28/21 05:38 Hgb 11.8 g/dL (12.0-16.0) L 04/28/21 05:38 Hct 36.3 % (37-47) L 04/28/21 05:38 MCV 94.0 fL (80-100) 04/28/21 05:38 MCH 30.6 pg (25-34) 04/28/21 05:38 MCHC 32.5 g/dL (32-36) 04/28/21 05:38 RDW Std Deviation 44.2 fL (36.4-46.3) 04/28/21 05:38 RDW Coeff of Vicente 12.9 % (11.5-14.5) 04/28/21 05:38 Plt Count 250 K/uL (130-400) 04/28/21 05:38 MPV 9.5 fL (7.4-10.4) 04/28/21 05:38 Sodium 138 mmol/L (136-145) 04/28/21 05:38 Potassium 4.6 mmol/L (3.5-5.1) 04/28/21 05:38 Chloride 106 mmol/L (98-107) 04/28/21 05:38 Carbon Dioxide 30 mmol/L (21-32) 04/28/21 05:38 Anion Gap 2 (3-11) L 04/28/21 05:38 BUN 21 mg/dl (6-23) 04/28/21 05:38 Creatinine 1.14 mg/dl (0.6-1.2) 04/28/21 05:38 Est Cr Clr Drug Dosing 61.3 ml/min 04/28/21 05:38 Est GFR ( Amer) 61.4 ml/min 04/28/21 05:38 Est GFR (Non-Af Amer) 53.0 ml/min 04/28/21 05:38 BUN/Creatinine Ratio 18.4 (10-20) 04/28/21 05:38 Glucose 121 mg/dl (70-99(Fasting)) H 04/28/21 05:38 Calcium 8.6 mg/dl (8.5-10.1) 04/28/21 05:38 Magnesium 2.1 mg/dl (1.7-2.4) 04/27/21 19:59 TSH 0.885 uIu/ml (0.300-4.500) 04/27/21 19:59 SARS-CoV-2, RNA, NAAT NEGATIVE (NEGATIVE) 04/27/21 Unknown Blood Type O Positive 04/27/21 12:41 Antibody Screen NEGATIVE 04/27/21 12:41 Impressions Knee X-Ray 04/27/21 17:55 XR knee LT 1 or 2V routine CLINICAL HISTORY: Surgical Post Op. Status post total knee replacement COMPARISON STUDY: No previous studies for comparison. TECHNIQUE: 2 left knee views FINDINGS: The patient is status post total knee replacement. The prosthetic components are in anatomic alignment with no acute abnormality seen. Air is present within the soft tissues from the procedure. Skin shasha are seen anteriorly. IMPRESSION: Status post total knee replacement. ACT 112: Negative or not required by law. Electronically signed by: Kishor Dacosta M.D. 04/27/2021 10:12 PM
[2021-04-30] MEDS ORDERED: CYANOCOBALAMIN (VITAMIN B-12) 2,500 MCG TAB.SUBL SL SCH (09:00)
--- NOTE | 2021-04-30 16:45 | Discharge Summary ---
Date of Service April 30, 2021 Admission HPI Per Admitting Provider 56 year old female with PMHx significant for chronic pain, DVT, HTN, GERD, CKD who presents with longstanding left knee pain. She has failed conservative management. Pain interfering with her daily activities. She has previous right knee replacement and would like to proceed with left knee replacement. Patient denies headaches, sweats, fevers, chills, double vision, blurred vision, cough, sore throat, dysphagia, chest pain, sob, wheezing, n/v/d/c, numbness, tingling, fatigue, urinary symptoms, mood disorders. ROS positive for left knee pain and stiffness. Admission Exam Per Admitting Provider Constitutional: well developed and well nourished; no acute distress Eyes: PERRL, conjunctivae normal, anicteric sclerae ENMT: external ear and nose normal, oropharynx normal Neck: trachea midline, no thyromegaly Respiratory: normal respiratory effort, lungs clear to auscultation Cardiovascular: RRR, no murmur, no edema Musculoskeletal: Left knee: Valgus alignment. Lateral joint line tenderness with mild surrounding swelling. ROM 0-120 degrees. Stable to valgus and varus stress.Mild crepitation. Bilateral lower extremity chronic lymphedema. Skin: no rashes, warm and dry Neurologic: patellar DTR's 2+ bilat, sensation intact Psychiatric: A+Ox3, euthymic affect Principal Diagnosis Left knee osteoarthritis Discharge Exam Dressings are clean, dry, and intact. Calves are soft and nontender. Neurovascular is intact. Toes are mobile. She has good dorsiflexion and plantarflexion of her left ankle. Hemovac drainage was 100 mL from the previous shift. Constitutional well developed and well nourished; no acute distress Skin no rashes, warm and dry Neurologic patellar DTR's 2+ bilat, sensation intact Psychiatric A+Ox3, euthymic affect Discharge Data Allergies Allergy/AdvReac Type Severity Reaction Status Date / Time benzonatate Allergy Unknown PT UNSURE Verified 04/27/21 12:20 [From Juanjo Hernandez] OF REACTION, ?STOMACH PAIN citalopram Allergy Unknown PT UNSURE Verified 04/27/21 12:20 OF REACTION/? STOMACH PAIN gabapentin AdvReac Intermediate Stiffness Verified 04/27/21 12:20 or upset stomach amitriptyline AdvReac Mild Upset Verified 04/27/21 12:20 stomach Consultations 04/27/21 19:32 Consult Hospitalist Routine Procedures Performed Operation Date: 04/27/21 13:40 Actual Procedures p Left total knee arthroplasty(Left) - Bryce Quintanilla MD Ordered Studies 04/27/21 05:00 US - OR guided needle placemen Routine Hospital Course (1) Primary osteoarthritis of left knee: Patient presented for same day admission following left total knee arthroplasty on 04/27/21. She tolerated procedure well. The Patient had an uneventful hospital course. Post-operatively, her activity was progressed and well tolerated. They participated in PT with ambulation distance of 95 feet. ROM of operative knee reached 60 degrees. Labs remained stable- lowest hemoglobin recorded: 11.8. Dr. Bette Mcgrath of medical service was consulted for medical management during admission. Pain controlled on oral medications. Please refer to daily progress notes and PT notes for complete details. After exam on 04/28/21, patient was felt to be stable for discharge home with plans on attending outpatient PT. Patient will f/u in the office in about 2 weeks for further evaluation including x-rays and incision check, sooner if having any issues or concerns. Postop day 1 status post left total knee arthroplasty PT/OT protocols. Weightbearing as tolerated. DVT prophylaxis-apixaban p.o. twice daily, SCDs, SCOTT villa. Pain management as written. DC planning-patient is planning on going home with outpatient physical therapy. Lab Results 04/27/21 04/27/21 04/27/21 Range/Units 12:41 19:59 19:59 WBC (4.8-10.8) K/uL RBC (4.2-5.4) M/uL Hgb (12.0-16.0) g/dL Hct (37-47) % MCV (80-100) fL MCH (25-34) pg MCHC (32-36) g/dL RDW Std Deviation (36.4-46.3) fL RDW Coeff of Vicente (11.5-14.5) % Plt Count (130-400) K/uL MPV (7.4-10.4) fL Sodium 141 (136-145) mmol/L Potassium 4.1 (3.5-5.1) mmol/L Chloride 106 (98-107) mmol/L Carbon Dioxide 32 (21-32) mmol/L Anion Gap 3 (3-11) BUN 19 (6-23) mg/dl Creatinine 1.08 (0.6-1.2) mg/dl Est Cr Clr Drug Dosing 64.7 ml/min Est GFR ( Amer) 65.5 ml/min Est GFR (Non-Af Amer) 56.5 ml/min BUN/Creatinine Ratio 17.6 (10-20) Glucose 93 (70-99(Fasting)) mg/dl Calcium 8.8 (8.5-10.1) mg/dl Magnesium 2.1 (1.7-2.4) mg/dl TSH 0.885 (0.300-4.500) uIu/ml SARS-CoV-2, RNA, NAAT (NEGATIVE) Blood Type O Positive Antibody Screen NEGATIVE 04/27/21 04/28/21 04/28/21 Range/Units Unknown 05:38 05:38 WBC 10.94 H (4.8-10.8) K/uL RBC 3.86 L (4.2-5.4) M/uL Hgb 11.8 L (12.0-16.0) g/dL Hct 36.3 L (37-47) % MCV 94.0 (80-100) fL MCH 30.6 (25-34) pg MCHC 32.5 (32-36) g/dL RDW Std Deviation 44.2 (36.4-46.3) fL RDW Coeff of Vicente 12.9 (11.5-14.5) % Plt Count 250 (130-400) K/uL MPV 9.5 (7.4-10.4) fL Sodium 138 (136-145) mmol/L Potassium 4.6 (3.5-5.1) mmol/L Chloride 106 (98-107) mmol/L Carbon Dioxide 30 (21-32) mmol/L Anion Gap 2 L (3-11) BUN 21 (6-23) mg/dl Creatinine 1.14 (0.6-1.2) mg/dl Est Cr Clr Drug Dosing 61.3 ml/min Est GFR ( Amer) 61.4 ml/min Est GFR (Non-Af Amer) 53.0 ml/min BUN/Creatinine Ratio 18.4 (10-20) Glucose 121 H (70-99(Fasting)) mg/dl Calcium 8.6 (8.5-10.1) mg/dl Magnesium (1.7-2.4) mg/dl TSH (0.300-4.500) uIu/ml SARS-CoV-2, RNA, NAAT NEGATIVE (NEGATIVE) Blood Type Antibody Screen Total Time Total Time Spent Total Time Spent (In Minutes): 20 Discharge Plan Discharge Items Patient Disposition: Home - Self-Care Reason For Visit: Left Knee Osteoarthritis Discharge Diagnosis: Left Knee Osteoarthritis Activity: Per Instructions section Weightbearing: Left weightbearing Weightbearing Comment: As tolerated with walker Non-emergency contact: Surgeon Call non-emergency contact if: you have any medication questions, your temperature is above 101.5, your wound has increased redness and your wound has increased drainage Follow-up/Referrals: Bryce Quintanilla MD [Surgeon] - (Follow-up in 10 to 14 days from the day of surgery for wound check.) Filemon Phillips V., [Primary Care Provider] - Diet: Regular Addtl Attending Provider Instructions: ACTIVITY RECOMMENDATIONS: SELF CARE INSTRUCTIONS AFTER TOTAL KNEE REPLACEMENT A. You may need to continue a physical therapy program after discharge from the hospital. There are several options available to you. Your doctor will assist you in selecting the best one for you. 1. An out-patient facility 2 to 3 times a week for therapy or home therapy. 2. Continue working on all exercises taught to you in the hospital. Your goals should be to increase bending of your knee to 90 degrees and beyond and to fully straighten your knee. B. You may progress at your own pace from walking with a walker or crutches to a cane; then to no assistive devices. C. Make walking a part of your daily routine. Be up as much as comfortable with rest periods throughout the day. Rest with leg elevation is very important. Use the ice wrap frequently for the first 3-4 weeks. D. There are no restrictions on activities. You may ride in a car, shop, participate in stamping bench die maker and all social activities. E. Wear the long elastic stockings (SCOTT hose) 20 hours a day for 2 weeks after surgery. They can be removed several times a day for laundering and for a bath. F. You may shower, no tub baths until cleared by your doctor. SPECIAL CARE INSTRUCTIONS: VERY IMPORTANT TO READ AND REVIEW A. There are a few signs you need to watch for after you are home. Call [facility] if you notice any of the followin. Increased severe knee pain. Some pain is expected especially when you exercise. 2. Increased swelling in your leg or knee; pain or swelling of the calf muscle in either lower leg. 3. Any fluid drainage from the incision. 4. Shortness of breath or chest pain. B. Please call [facility] at if you have any concerns or questions about your operation or recovery. The doctor or his nurse will return your call promptly. C. You must take antibiotics before dental work, bladder, bowel or other surgery. Your doctor will provide you with a permanent care to carry describing this precaution. IMPORTANT: * REMEMBER TO TAKE APIXABAN, 2.5 MG, TWICE DAILY * CALL IF INCREASED PAIN, REDNESS, DRAINAGE OR FEVER GREATER THAT 101. * WEAR SCOTT HOSE 20 HOURS PER DAY FOR 2 WEEKS. * Liu wound dressing - This is a large suction dressing covering your incision. This will help pull any excess drainage from the wound and allow your incision to heal properly. You may shower with this if you can keep the unit outside of the shower. If any bleeding or leakage is noted please call your doctor's office. This will remain on your incision for 7 days and then should be removed. This can be done yourself or by the home nursing staff if applicable. The entire unit is disposable once removed. Once removed, keep incision clean and dry. If redness or drainage is noted, please call your surgeon. IF INCISION IS LEAKING THROUGH DRESSING, CALL THE OFFICE . FOLLOW UP VISIT: If appointment is not already scheduled: Please call [facility] to make a follow-up appointment for 2 weeks after your surgery at . Stand-Alone Forms: My [employer], Smoking Cessation Medications and DC Order Prescriptions: New Eliquis 2.5 mg Tablet 2.5 mg PO BID 30 Days Qty: 60 RF: 0 cefadroxil 500 mg capsule 500 mg PO BID Qty: 14 RF: 0 Continued fentanyl 100 mcg/hr Patch 72 Hour 1 patch TRANSDERMAL Q72H RF: 0 hydrocodone-acetaminophen 7.5-300 mg Tablet 1 tab PO Q6H PRN (Reason: Pain) RF: 0 multivitamin Tablet 1 tab PO BID RF: 0 pucettelti-uttkvypmnpemw-bbfx 50-325-40 mg Capsule 1 cap PO Q6H PRN (Reason: Migraine Headache) RF: 0 topiramate 100 mg Tablet 100 mg PO BID RF: 0 potassium chloride 20 mEq Tablet Extended Release 20 meq PO BID RF: 0 cyanocobalamin (vitamin B-12) 5,000 mcg Capsule 5,000 mcg PO WK RF: 0 fentanyl 50 mcg/hr Patch 72 Hour 1 patch TRANSDERMAL Q72H RF: 0 sennosides [Senokot] 8.6 mg Tablet 17.2 mg PO HS PRN (Reason: constipation) Qty: 30 RF: 0 docusate sodium 100 mg Tablet 100 mg PO DAILY RF: 0 calcium carbonate-vitamin D3 600 mg-5 mcg (200 unit) Tablet 1 tab PO BID RF: 0 omeprazole 20 mg Capsule,Delayed Release(Dr/Ec) 40 mg PO QAM RF: 0 furosemide 20 mg Tablet 20 mg PO BID PRN (Reason: Edema) RF: 0 Discharge Orders: Discharge Order (Routine); Ordered 04/28/21 Ordered By: Haja Barry Admission Data Admit Date/Time: 04/27/21 17:55 Attending Provider: Bryce Quintanilla Admit Provider: Bryce Quintanilla Primary Care Provider: Filemon Phillips V. Other Providers: Becki Randall Other Interventions: Discharge Summary Assessment (RN) Last Done: 04/28/21 14:09
== END 2021-04-28 16:30 | disposition home or self-care (01) ==
LOC: 3W 11:44 → ASU 11:44

== ENCOUNTER 2023-02-04 08:13 | Observation (INO) ==
--- NOTE | 2023-01-08 12:46 | PAT Medication Instructions ---
Medication Instructions Date of Service January 08, 2023 Home Medications zsrxfnfvvs-acdjnuyiwukel-keozsnqt 50 mg-325 mg-40 mg capsule 1 cap PO Q6H PRN Migraine Headache cyanocobalamin (vitamin B-12) 5,000 mcg capsule 5,000 mcg PO Q7D fentanyl 100 mcg/hr transdermal patch 1 patch transdermal Q72H hydrocodone 7.5 mg-acetaminophen 300 mg tablet 1 tab PO Q6H PRN Pain multivitamin 1 tab PO BID potassium chloride 20 mEq tablet,extended release 20 meq PO BID topiramate 100 mg tablet 100 mg PO BID fentanyl 50 mcg/hr transdermal patch 1 patch transdermal Q72H calcium carbonate 600 mg-vitamin D3 5 mcg (200 unit) tablet 1 tab PO BID furosemide 20 mg tablet 20 mg PO BID PRN Edema omeprazole 20 mg capsule,delayed release 40 mg PO QAM MEDICATION INSTRUCTIONS: Continue as directed fentanyl 100 mcg/hr transdermal patch 1 patch transdermal Q72H (do not place patch near surgical area) DO NOT take the morning of surgery calcium carbonate 600 mg-vitamin D3 5 mcg (200 unit) tablet 1 tab PO BID multivitamin 1 tab PO BID potassium chloride 20 mEq tablet,extended release 20 meq PO BID rqhbmzcpdy-esejfobxryepa-tspsubxz 50 mg-325 mg-40 mg capsule 1 cap PO Q6H PRN Migraine Headache furosemide 20 mg tablet 20 mg PO BID PRN Edema cyanocobalamin (vitamin B-12) 5,000 mcg capsule 5,000 mcg PO Q7D Take morning of surgery With a small sip of water, OTHERWISE NOTHING TO EAT OR DRINK AFTER MIDNIGHT: omeprazole 20 mg capsule,delayed release 40 mg PO QAM hydrocodone 7.5 mg-acetaminophen 300 mg tablet 1 tab PO Q6H PRN Pain (if needed) topiramate 100 mg tablet 100 mg PO BID Take evening before surgery calcium carbonate 600 mg-vitamin D3 5 mcg (200 unit) tablet 1 tab PO BID multivitamin 1 tab PO BID potassium chloride 20 mEq tablet,extended release 20 meq PO BID snvnxevjvi-rlprkqvnrqpnr-gmmzojks 50 mg-325 mg-40 mg capsule 1 cap PO Q6H PRN Migraine Headache furosemide 20 mg tablet 20 mg PO BID PRN Edema hydrocodone 7.5 mg-acetaminophen 300 mg tablet 1 tab PO Q6H PRN Pain topiramate 100 mg tablet 100 mg PO BID Other Notes If you have any questions please call us at [phone] or [phone] or [phone] or [phone]
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
[~2023-02-04 08:13] MED LIST changes: +ACETAMINOPHEN 500 MG TAB PO SCH; +CeleBREX 200 MG CAP PO SCH; +FAMOTIDINE 20 MG TAB PO SCH; +GABAPENTIN 600 MG DOSE PO SCH; +LR 15ML/HR IV SCH; -LR 500ML BOLUS, THEN 15ML/HR IV SCH; +LR 60ML/HR IV SCH; +METOCLOPRAMIDE HCL 10 MG TABLET PO SCH; -ROPIVACAINE 0.5% 5 MG/ML 30 ML VIAL ONE; -ROPIVACAINE 0.5% HCL/PF 150 MG, BUPIVACAINE 0.75% MPF 20 ML, EPINEPHrine 0.15 MG, Ketor... INFIL SCH; +TRANEXAMIC ACID 1,000 MG **IV Intra-op IV SCH; +TRANEXAMIC ACID 1,000 MG **IV Pre-op IV SCH; +ceFAZolin 2000MG 2,000 MG/15 ML SYR IV SCH; +dexAMETHasone 4 MG TAB PO SCH
[2023-02-04] MEDS ORDERED: ACETAMINOPHEN 1000 MG/100 ML IV IV ONE (08:19)
[2023-02-04] MEDS ORDERED: DexMEDEtomidine HCL IV 100 MCG/ML VIAL IV ONE (08:19)
[2023-02-04] MEDS ORDERED: MIDAZOLAM HCL 1 MG/ML 2ML VIAL ONE (08:21)
[2023-02-04] MEDS ORDERED: fentaNYL citrate PF 100 MCG/2 ML VIAL ONE (08:21)
[2023-02-04] MEDS ORDERED: ePHEDrine sulfate 50 MG/ML AMP IV PRN (08:44)
[2023-02-04] MEDS ORDERED: ONDANSETRON INJ 2 MG/ML 2 ML VIAL IV PRN ×2 (08:44→14:21)
[2023-02-04] MEDS ORDERED: ATROPINE SULFATE 0.1 MG/ML 10ML SYR IV PRN (08:44)
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
--- OUTSIDE RECORDS SUMMARY | 2023-02-04 08:58 | External Medical Summary | Summary of Care ---
Author Name Unknown Organization [facility] Address [address] [facility] [address] Phone [phone] Care Team Providers Care Aesthetics Instructor Name Role Phone Alan Hammer DO, David Vincent Primary Care Provid er Reason for Visit * Reason Onset Date Comments Medication Refill 01/25/2023 Encounter Details Date Type Department Care Team (Late st Contact Info) Description 01/25/[address] [facility] [address] [place] [address] Chantal Phillips Jr., DO [address] [place] [address] Allergies Active Allergy Reactions Criticality Noted Date Comments Amitriptyline Hcl 03/20/2005 CAUSED MUSCLE CRAMPS Citalopram 04/21/2002 Remeron - headache Gabapentin 08/04/2003 neurontin-muscle stiffness Tessalon Perles 07/19/2008 Nausea, stomach cramps documented as of this encounter (statuses as of 01/25/2023) Medications Medication Sig Dispensed Refills Start Date End Date Status Cyanocobalamin (VITAMIN B-12) [address] 1 Tablet under the tongue in the morning. 0 Active NARCAN 4 MG/0.1ML LIQD 1 SPRAY INTRANASALLY ONCE FOR OVERSEDATION FROM PAIN MEDS 0 02/04/2019 Active Multiple Vitamins-Minerals (MULTIVITAMIN ADULT) TABS 1 Tab. 0 12/23/2018 Active Potassium Chloride [facility] 20 MEQ [...] for edema. 30 Tablet 11 06/19/2022 Active Khfztwvkhr-NTOH-Hd ffeine 50-325-40 MG Oral Tablet (Fioricet) Take [...] 3 days. 10 Patch 0 12/28/2022 Active HYDROcodone-Acetam inophen 7.5-300 MG Oral TabletIndications: Back disorder,MEDICATIO N USE AGREEMENT,Lumbar radiculopathy Take 1 Tablet by mouth every 8 hours as needed for Pain, Severe. 75 Tablet 0 01/14/2023 Active fentaNYL 50 MCG/HR Transdermal Patch 72 Hour (Duragesic)Indicat ions:Back disorder,MEDICATIO N USE AGREEMENT,Chronic pain syndrome,Lumbar radiculopathy Place 1 Patch topically on the skin every 3 days. 10 Patch 0 01/16/2023 Active Nystatin 894155 UNIT/GM External Powder (Nyamyc) APPLY TOPICALLY TO AFFECTED AREA 3 TIMES A DAY 60 g 0 01/25/2023 Active Docusate Sodium 100 MG Oral Capsule Take 1 Capsule by mouth. 0 01/07/2018 01/26/20 Discontinu ed(Refill) Nystatin 909219 UNIT/GM External Powder (Nyamyc) APPLY TOPICALLY TO AFFECTED AREA 3 TIMES A DAY 60 g 0 09/02/2020 01/26/20 Discontinu ed(Refill) documented as of this encounter (statuses as of 01/25/2023) Active Problems Problem Noted Date Diagnosed Date [...] as of this encounter (statuses as of 01/25/2023) Resolved Problems Problem Noted Date Diagnosed Date [...] as of this encounter (statuses as of 01/25/2023) Immunizations Name Administration Dates Next Due MMR [...] 1:24 PM EDT Sexual Orientation Straight 08/29/2018 1 :24 PM EDT Job Start Date Occupation Industry [...] Encounter - Chantal Phillips Jr., DO - 01/25/2023 4:15 PM EST Signed Prescriptions: Disp Refills Nystatin 334657 UNIT/GM External Powder (N*60 g 0 Sig: APPLY TOPICALLY TO AFFECTED AREA 3 TIMES A DAY Authorizing Provider: CHANTAL PHILLIPS JR * Telephone Encounter - Kerry Eagle [facility] - 01/25/2023 3:50 PM EST Did you pend patient's preferred pharmacy and medication before forwarding?yes Pharmacy: [id number] Pending Prescriptions: Disp Refills Nystatin 099585 UNIT/GM External Powder (*60 g 0 Sig: APPLY TOPICALLY TO AFFECTED AREA 3 TIMES A DAY Last Visit: 11/26/2022 (in office), Visit date not found (telemedicine) Next Visit: 03/29/2023 If no future appointments scheduled, and last appointment is greater than a year ago, please schedule patient for a follow-up appointment Last date the medication was ordered: 09/02/20 Is this request for a controlled substance?No Urine Drug Screen: Results for orders placed [...] 03/29/2023 10:20 AM EST Office Visit [facility] [address] [place] [address] Chantal Phillips Jr., DO [address] [place] [address] Health Maintenance Due Date Last Done Comments Hepatitis B (1 of 3 - 3-dose series) 1965 COVID-19 Vaccine (#1) 1965 Cologuard 2008 Fecal Occult Blood Test 2008 Sigmoidoscopy 2008 Zoster Vaccines (1 of 2) 2013 CKD PHOS USE SMARTSET 35929 07/21/2021 05/0 08/2020, 09/22/2019, 04/28/2019, Additional history exists Albumin/Creatinine Ratio 11/15/20212 021, 09/22/2019, 04/28/2019, Additional history exists Influenza Vaccine (FLU shot) (#1) 2022 GFR 05/27/2023 11/26/2022, 04/0 03/2021, 11/15/2020, Additional history exists Depression Screening 07/26/2023 07/25/2022 Mammogram 09/15/2023 09/14/2022, 02/0 09/2021, 03/04/2020, Additional history exists CKD HGB USE SMARTSET 96461 11/27/202311/26, 11/15/2020, 07/21/2020, Additional history exists Lipid Panel 04/28/2024 04/28/2019, 02/0 10/2016, 05/14/2014, Additional history exists Diabetes Screening 11/26/2025 11/26/2022, 0 06/16/2021, 11/15/2020, Additional history exists DTaP,Tdap,and Td Vaccines (3 - Td or Tdap) 12/22/2025 12/23/2015, 02/25/2008, 02/06/1996 Colonoscopy 01/21/2033 01/21/2023, 11/08/2022, 12/14/2021, Additional history exists Colorectal Cancer Screening [...] Not on filedocumented as of this encounter Advance Directives Latest Code Status on File Code Status Date Activated Date Inactivated Comments Full Code 08/17/2014 7:08 AM 08/17/2014 3:49 PM This or franco reflects the patients wishes and were consensually agreed upon. Code Status History Code Status Date Activated Date Inactivated Comments None 10/06/2004 10:30 AM 10/06/2004 10:30 AM Care Teams Aesthetics Instructor Relationship Specialty Start Date End Date Chantal Phillips Jr., DO [address] [place] [id number] PCP - General Family Medicine 06/20/18 documented as of this encounter
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
--- NOTE | 2023-02-04 09:19 | History & Physical Bridge Note ---
Date of Service February 04, 2023 History & Physical Bridge Note I have examined the patient, reviewed the History & Physical and in the interval since the performance of the History & Physical I have noted the following changes of clinical significance: no changes noted
[2023-02-04] MEDS ORDERED: EpINEphrine HCL INJ 1 MG/ML 1ML SYRINGE ONE (09:22)
[2023-02-04] MEDS ORDERED: PHENYLEPHRINE 100MCG/ML 10ML SYR IV ONE (09:59)
[2023-02-04] MEDS ORDERED: LIDOCAINE 2% 2 ML VIAL/AMP(20MG/ML) INFIL ONE (09:59)
[2023-02-04] MEDS ORDERED: PROPOFOL IV EMULSION 10 MG/ML 20 ML VIAL IV ONE (09:59)
[2023-02-04] MEDS ORDERED: ONDANSETRON INJ 2 MG/ML 2 ML VIAL ONE (09:59)
[2023-02-04] MEDS ORDERED: NEOSTIGMINE METHYLSULFATE 1 MG/ML 10ML VIAL ONE (11:32)
[2023-02-04] MEDS ORDERED: GLYCOPYRROLATE 0.2 MG/ML VIAL ONE (11:32)
--- NOTE | 2023-02-04 12:08 | Operative Report ---
Post Operative Report Pre & Post Diagnosis Operation Date: 02/04/23 09:35 Pre-Op Diagnosis: Left Shoulder Primary Osteoarthritis, Biceps tenosynovitis, obesity BMI 42.8 Post-Op Diagnosis: Left Shoulder Primary Osteoarthritis, biceps tenosynovitis, loose body biceps t endon sheath, obesity BMI 42.8 I identified the patient and participated in the time-out.: Yes Procedure Operation Date: 02/04/23 09:35 Actual Procedures p Left stemless Total Shoulder Arthroplasty, Biceps Tenodesis with excision loose body biceps tendon sheath. - Bryce Quintanilla MD Surgeon Bryce Quintanilla MD Hazmat Tanker Driver Jigar BARNES Estimated Blood Loss 50 Findings Consistent with Post-Op Diagnosis Specimens humeral head Drains 2 Hemovac Complications none Disposition Disposition: Recovery Room Indications 57-year-old female chronic left shoulder pain with radiographs demonstrating grade 4 osteoarthritis on axillary view of glenohumeral joint, MRI demonstrates mild rotator cuff tendinopathy With intact rotator cuff and biceps tendinitis/tenosynovitis. Description of Procedure patient was taken to the operating room anesthetized under regional block and general anesthetic. Patient was placed in a 40 degree beach chair position with a foam headrest protective eyewear all extremities padded and SCDs were placed. A towel roll was placed on the medial border of the scapula of the Left upper extremity. The arm was examined and range of motion demonstrated full range of motion with some generalized ligamentous laxity and crepitation. An anterior deltopectoral approach was performed. Longitudinal incision was made in deltopectoral interval. Skin incised sharply and subcutaneous flaps elevated. The deltopectoral interval was identified. The cephalic vein demonstrated Normal vein which was retracted laterally with the deltoid. The upper centimeter of the pectoralis was released for inferior exposure. Biceps tendon demonstrated marked biceps tenosynovitis and loose body about 7 x 5 mm irregular shaped was in the biceps tendon sheath. The inflamed tendon sheath was resected along with a loose body. The biceps was tenodesed to the pectoralis tendon using #2 FiberWire [id number]-hw-tywre sutures Including a whipstitch. Proximal biceps was resected. Rotator cuff findings demonstrated intact rotator cuff. The circumflex vessels were tied off with silk ties and divided laterally. The subscapularis muscle fibers were split at the level of circumflex vessels and released off the inferior capsule with a Kitner elevator and then a blunt Hohmann retractor was placed protect the axillary nerve. The rotator interval was released down to the level of the glenoid. The subscapularis tendon was taken down with a transtendinous incision leaving a cuff of tissue for repair on the lesser tuberosity. The humeral head findings demonstrated Inferior osteophytes and neck osteophytes with arthritic changes on humeral head grade 3 primarily some areas of grade 4 fissuring down to bone but no eburnated bone. The inferior osteophytes were resected using an artist chisel and rongeur. The inferior capsule was released off the bone subpe riosteally using a Drew elevator. A #1 Vicryl traction suture was placed into the free edge of the subscapularis tendon. A Fukuda retractor was placed into the joint. Because of the ligamentous laxity of the shoulder I just excised the labrum and the biceps tendon and did some posterior inferior release enough to get a retractor posterior inferiorly for appropriate glenoid exposure and tried to limit releases for stability purposes.. An anterior Bankart retractor was placed. The glenoid and labral findings demonstrated Grade 4 articular changes on the glenoid with a very petite glenoid. Attention was taken back to the humeral head. Humeral head was exposed with extension and external rotation. The oscillating saw was used to make an anatomic neck cut removing the articular surface. Bone quality was quite hard and solid and satisfactory for a stemless implant. The humerus was sized for a 1 nucleus and a43 humeral head. The bone was assessed with a thumb press test and there was solid cancellous bone. The guide for the nucleus was placed centrally and then the guidepin was placed. The surface reamer was used followed by the central drill for the nucleus. The trial nucleus was inserted and the cut protector was placed. The humerus was retracted posterior to the glenoid . A Tornier retractor ,Hohmann retractors as well as an anterior Bankart retractor were placed. The glenoid was fully exposed. The Tornier Cortiloc glenoid was used. The small 40 radius size was chosen. The central drill hole was made followed by the reamer for the glenoid followed by widening the central hole for the central post. The guide for the peripheral drill holes was placed and the drill holes were made. The trial reduction performed with stable fixation. The trial removed and the glenoid copiously irrigated with pulsed saline solution. The drill holes were packed with epinephrine-soaked tampons. The Palacos G cement was vacuum mixed. The Tornier Cortiloc 40 radius small glenoid component was then cemented in position after drying the glenoid after removal of the tampons. Fixation was excellent. All excess cement was cleared. When the cement cured we moved onto removing the cut protector doing a trial reduction with a 43 x 17 millimeter humeral head trial. Stability was assessed and was lax with adduction and flexion posteriorly so we used various soft tissue balancing heads and decided on the 44 x 21 mm head which demonstrated no posterior instability and satisfactory range of motion otherwise. Soft tissue tension on the subscapularis tendon was satisfactory. The trial components of the humeral head were removed and the 3 drill holes were made in the harder bone in the biceps groove area and transosseous #5 FiberWire sutures were placed. Then the humeral cut surface was reexposed with retractors and after irrigation the size 1 nucleus was impacted leaving it slightly proud until the simplicity 44 x 21 mm soft tissue balancing humeral head was placed into the nucleus and then both were impacted into the humerus with a tight press-fit. The humerus was reduced to the glenoid. The stability was verified. The subscapularis tendon was repaired in 2 [id number] #2 FiberWire sutures. Lateral row fixation was performed with interrupted yjmbku-wh-pkhdt #2 FiberWire sutures and rotator interval was closed with #2 FiberWire sutures. Range of motion demonstrated 70 degrees external rotation and 90 degrees AB duction and forward elevation 160 degrees without tension on repair. The pectoralis was repaired with [id number]-[id number] #2 FiberWire sutures placing sutures back through the biceps tendon to reinforce the tenodesis, 2 Drains were placed. The deltopectoral interval was repaired with uzwxkk-pt-genfv #1 Vicryl sutures. The subcutaneous tissue was repaired with 2-0 Vicryl sutures and the skin was closed with shasha. Sterile dressings were applied and a sling immobilizer. The patient tolerated the procedure well. Jigar BARNES acted as visual merchandising assistant throughout the procedure. He functioned as visual merchandising assistant assisting in all aspects of the procedure including patient positioning prepping draping, arm positioning, soft tissue retraction,, instrument management, subcutaneous and skin closure and postop care the patient as well. I attest to the content of the Intraoperative Record and any orders documented therein. Any exceptions are noted below.
[2023-02-04] MEDS: fentaNYL citrate PF 100 MCG/2 ML VIAL IV PRN ×4 (12:25→12:40)
--- NOTE | 2023-02-04 13:04 | XRay Report ---
XR shoulder LT min 2V routine CLINICAL HISTORY: Post shoulder surgery TECHNIQUE: 3 views of the left shoulder were obtained. Comparison: Comparison is made to chest radiograph 01/18/2020 FINDINGS: Patient is status post shoulder arthroplasty with expected postsurgical changes including soft tissue swelling and subcutaneous emphysema. No periarticular lucency or hardware fracture is seen. IMPRESSION: Expected postoperative appearance status post placement of shoulder arthroplasty. ACT 112: Negative or not required by law. Electronically signed by: Mateo Yanez M.D. 02/04/2023 1:03 PM
[2023-02-04] MEDS ORDERED: FUROSEMIDE 20 MG TAB PO PRN (14:21)
[2023-02-04] MEDS ORDERED: MAGNESIUM HYDROXIDE SUSP 30 ML UDC PO PRN (14:21)
[2023-02-04] MEDS ORDERED: HYDROmorphone INJ 0.5 MG/0.5 ML SYR IV PRN (14:21)
[2023-02-04] MEDS ORDERED: NALOXONE HCL 0.4 MG/1 ML VIAL/CARP IV PRN (14:21)
[2023-02-04] MEDS ORDERED: bisacodyL 10 MG SUPP PR PRN (14:21)
[2023-02-04] MEDS ORDERED: METOCLOPRAMIDE HCL INJ 5 MG/ML 2 ML VIAL IV PRN (14:21)
[2023-02-04] MEDS ORDERED: ROCURONIUM BROMIDE 10 MG/ML 5 ML VIAL IV ONE (14:22)
--- NOTE | 2023-02-04 14:25 | Anesthesiology Progress Note ---
Date of Service February 04, 2023 Anesthesia Post Procedure Vital Signs Vital Signs: Temp Pulse Pulse Resp BP Pulse Ox O2 Del Method 02/04/23 14:21 36.6 C 81 19 145/80 H 95 Room Air 02/04/23 14:00 54 L 16 153/70 H 98 Nasal Cannula 02/04/23 13:45 50 L 18 143/73 H 98 Nasal Cannula 02/04/23 13:30 53 L 14 130/64 98 Nasal Cannula 02/04/23 13:15 60 14 153/79 H 99 Nasal Cannula 02/04/23 13:05 36.4 C L 52 L 14 142/78 H 98 Nasal Cannula 02/04/23 12:55 60 14 140/74 100 Nasal Cannula 02/04/23 12:45 58 L 16 142/77 H 97 Nasal Cannula 02/04/23 12:35 68 18 149/90 H 97 Nasal Cannula 02/04/23 12:25 75 20 161/87 H 95 Room Air 02/04/23 12:15 74 20 161/84 H 98 Oxymask 02/04/23 12:05 36.0 C L 95 H 20 181/103 H 96 Oxymask 02/04/23 08:37 36.6 C 64 20 177/71 H 98 Room Air O2 Flow Rate 02/04/23 14:21 02/04/23 14:00 2 02/04/23 13:45 2 02/04/23 13:30 2 02/04/23 13:15 2 02/04/23 13:05 2 02/04/23 12:55 2 02/04/23 12:45 2 02/04/23 12:35 2 02/04/23 12:25 02/04/23 12:15 4 02/04/23 12:05 4 02/04/23 08:37 Pain Intensity Back: Pain Intensity: 4 Left Shoulder: Pain Intensity: 3 Transfer of Care Handoff Completed per policy Notes Mental Status: alert / awake / arousable Patient Amnestic to Procedure: Yes Nausea / Vomiting: adequately controlled Pain: adequately controlled Airway Patency, RR, SpO2: stable & adequate BP & HR: stable & adequate Hydration State: stable & adequate Anesthetic Complications: no major complications apparent and Pt Satisfied with anesthetic care
[2023-02-04] MEDS ORDERED: BUTALBITAL/ACETAMIN/CAFFEINE TAB PO PRN (14:29)
[2023-02-04] MEDS ORDERED: SODIUM CHLORIDE 0.9% 1,000 ML IV SCH (14:30)
[2023-02-04] MEDS ORDERED: HYDROCODONE/ACETAMINOPHEN 7.5/325MG TAB PO PRN (14:47)
[2023-02-04] MEDS ORDERED: [UNRECOGNIZED DRUG - REMARK] SCH (14:59)
[2023-02-04] MEDS ORDERED: fentaNYL 50 MCG/HR TDSY TD SCH (15:00)
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
[2023-02-04] MEDS: CHECK fentaNYL PATCH PLACEMENT SCH (16:17)
[2023-02-04] MEDS: ceFAZolin 2000MG 2,000 MG/15 ML SYR IV SCH (18:05)
[2023-02-04] MEDS: DOCUSATE SODIUM 100 MG CAP PO SCH (20:08)
[2023-02-04] MEDS: CALCIUM 600MG + VIT D 400 IU TAB PO SCH (20:08)
[2023-02-04] MEDS: POTASSIUM CHLORIDE CRTAB 20 MEQ TABCR PO SCH (20:08)
[2023-02-04] MEDS: TOPIRAMATE 100 MG TAB PO SCH (20:08)
[2023-02-04] MEDS: MULTIVITAMIN TAB PO SCH (20:08)
[2023-02-05] MEDS: ceFAZolin 2000MG 2,000 MG/15 ML SYR IV SCH (00:39)
[2023-02-05] MEDS: CHECK fentaNYL PATCH PLACEMENT SCH ×2 (00:39→08:05)
[2023-02-05 07:23] LABS: Basophils # (auto) 0.02 K/uL (0.00-0.20); Basophils % (auto) 0.2 %; Hematocrit (blood only) 37.7 % (37.0-47.0); Hemoglobin 12.4 g/dl (12.0-16.0); Immature Granulocytes # (auto) 0.08 K/uL (0.01-0.20); Immature Granulocytes % (auto) 0.7 %; Lymphocytes # (auto) 1.86 K/uL (1.20-3.40); Lymphocytes % (auto) 16.6 %; Mean Corpuscular Hgb Conc 32.9 g/dL (32.0-36.0); Mean Corpuscular Volume 91.1 fL (80.0-100.0); Mean Platelet Volume 9.5 fL (9.4-12.4); Monocytes # (auto) 0.68 K/uL (0.11-0.59); Monocytes % (auto) 6.1 %; Neutrophils # (auto) 8.58 K/uL (1.40-6.50); Neutrophils % (auto) 76.4 %; Platelet Count 260 K/uL (130-400); RDW Coefficient of Variation 12.6 % (11.5-14.5); RDW Standard Deviation 42.2 fL (36.4-46.3); Red Blood Count 4.14 M/uL (4.20-5.40); White Blood Count 11.22 K/ul (4.8-10.8)
--- NOTE | 2023-02-05 07:25 | Orthopedic Progress Note ---
Date of Service February 05, 2023 Assessment & Plan (1) Primary osteoarthritis, left shoulder: Plan: Postop day #1 left total shoulder arthroplasty -PT/OT: Follow TSA protocol -Pain management as written -AM labs: Hemoglobin at 12.4 from 13.3 preop. Mild leukocytosis likely reactive due to surgical stress versus perioperative steroids. Patient is asymptomatic. Chemistries pending. -DVT prophylaxis: SCDs, aspirin 81 mg daily -Discharge planning: Plan on discharge home today as long as continues to remain stable. Admission and Anticipated Discharge Date Admission Date: February 04, 2023 Subjective Patient is postop day 1 left total shoulder arthroplasty. She is doing well this morning. Minimal pain. Otherwise feels well. No current complaints. Denies chest pain, shortness of breath, nausea/vomiting or diarrhea, headaches or dizziness. Review of Systems Review of Systems: All systems reviewed & are unremarkable except as noted in Subjective Physical Exam Physical Exam: Left shoulder: Sling is in place. Dressing is clean, dry, intact. Fingers are mobile with good inclusion special educator strength. Distally neurovascular status and sensation is grossly intact. Constitutional: WD/WN, vitals as above Results & Data Vital Signs (Past 12 Hours) Vital Signs Temp Pulse Resp BP Pulse Ox O2 Del Method 02/05/23 03:19 36.6 C 48 L 16 113/74 97 Room Air 02/05/23 00:43 59 L 95 Room Air 02/04/23 23:34 36.4 C L 46 L 16 115/75 94 Room Air 02/04/23 20:03 36.6 C 55 L 16 145/80 H 95 Room Air Laboratory Results Lab Results 02/05/23 Range/Units 06:42 WBC 11.22 H (4.8-10.8) K/ul RBC 4.14 L (4.20-5.40) M/uL Hgb 12.4 (12.0-16.0) g/dl Hct 37.7 (37.0-47.0) % MCV 91.1 (80.0-100.0) fL MCH 30.0 (25.0-34.0) pg MCHC 32.9 (32.0-36.0) g/dL RDW Std Deviation 42.2 (36.4-46.3) fL RDW Coeff of Vicente 12.6 (11.5-14.5) % Plt Count 260 (130-400) K/uL MPV 9.5 (9.4-12.4) fL Immature Gran % (Auto) 0.7 % Neut % (Auto) 76.4 % Lymph % (Auto) 16.6 % [place] % (Auto) 6.1 % Eos % (Auto) 0.0 % Baso % (Auto) 0.2 % Neut # (Auto) 8.58 H (1.40-6.50) K/uL Lymph # (Auto) 1.86 (1.20-3.40) K/uL [place] # (Auto) 0.68 H (0.11-0.59) K/uL Eos # (Auto) 0.00 (0.00-0.50) K/uL Baso # (Auto) 0.02 (0.00-0.20) K/uL Immature Gran # (Auto) 0.08 (0.01-0.20) K/uL
[2023-02-05] MEDS: CALCIUM 600MG + VIT D 400 IU TAB PO SCH (08:04)
[2023-02-05] MEDS: TOPIRAMATE 100 MG TAB PO SCH (08:04)
[2023-02-05] MEDS: DOCUSATE SODIUM 100 MG CAP PO SCH (08:04)
[2023-02-05] MEDS: POTASSIUM CHLORIDE CRTAB 20 MEQ TABCR PO SCH (08:04)
[2023-02-05] MEDS: MULTIVITAMIN TAB PO SCH (08:04)
[2023-02-05 08:44] LABS: Potassium 4.4 mmol/L (3.5-5.1)
[2023-02-05 08:50] LABS: BUN Creatinine Ratio 20.5 (10-20); Creatinine Clr Calc Pharmacy 59.6 ml/min; Est GFR (African American) 62.3 ml/min; Est GFR (Non-African American) 53.7 ml/min
[2023-02-05] MEDS ORDERED: ASPIRIN 81 MG ECTAB PO SCH (09:00)
[2023-02-05] MEDS ORDERED: MULTIVITAMIN TAB PO SCH (09:00)
[2023-02-05] MEDS ORDERED: PANTOprazole 40 MG TAB PO SCH (09:00)
--- NOTE | 2023-02-05 12:47 | Discharge Summary ---
Date of Service February 05, 2023 Admission HPI Per Admitting Provider 57-year-old female with past medical history significant for hyperparathyroidism, CKD, chronic pain, lymphedema, history of DVT, hypertension who presents with ongoing left shoulder pain. She has pain interfering with her daily activities. She has failed conservative measures including injections. She would like to proceed with surgical management. Patient denies headaches, sweats, fevers, chills, double vision, blurred vision, cough, sore throat, dysphagia, chest pain, sob, wheezing, n/v/d/c, numbness, tingling, fatigue, urinary symptoms, mood disorders. ROS positive for left shoulder pain and stiffness. Admission Exam Per Admitting Provider Constitutional: well developed and well nourished; no acute distress Eyes: PERRL, conjunctivae normal, anicteric sclerae ENMT: external ear and nose normal, oropharynx normal Neck: trachea midline, no thyromegaly Respiratory: normal respiratory effort, lungs clear to auscultation Cardiovascular: RRR, no murmur, no edema Musculoskeletal: Left shoulder: Tenderness anterolateral, acromion, anterior glenoid. Positive impingement signs. Pain with strength testing. 4/5 abduction, 5/5 external and internal rotation. Active painful range of motion. Abduction to 90 degrees, forward flexion to 160 degrees, external rotation 90 degrees. Skin: no rashes, warm and dry Neurologic: patellar DTR's 2+ bilat, sensation intact Psychiatric: A+Ox3, euthymic affect Principal Diagnosis Left shoulder osteoarthritis Discharge Exam Left shoulder: Sling is in place. Dressing is clean, dry, intact. 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 Distally neurovascular status and sensation is grossly intact. Discharge Data Allergies Allergy/AdvReac Type Severity Reaction Status Date / Time benzonatate Allergy Unknown PT UNSURE Verified 02/04/23 08:32 [From Juanjo Hernandez] OF REACTION, ?STOMACH PAIN citalopram Allergy Unknown PT UNSURE Verified 02/04/23 08:32 OF REACTION/? STOMACH PAIN gabapentin AdvReac Intermediate Stiffness Verified 02/04/23 08:32 or upset stomach amitriptyline AdvReac Mild Upset Verified 02/04/23 08:32 stomach Consultations 01/30/23 17:21 Consult Hospitalist Routine Procedures Performed Operation Date: 02/04/23 09:35 Actual Procedures p Left Total Shoulder Arthroplasty, Cemented, Bicep Tenodesis(Left) - Bryce Quintanilla MD Ordered Studies 02/04/23 05:00 US - OR guided needle placemen Routine Hospital Course (1) Primary osteoarthritis, left shoulder: Postop day #1 left total shoulder arthroplasty -PT/OT: Follow TSA protocol -Pain management as written -AM labs: Hemoglobin at 12.4 from 13.3 preop. Mild leukocytosis likely reactive due to surgical stress versus perioperative steroids. Patient is asymptomatic. Chemistries pending. -DVT prophylaxis: SCDs, aspirin 81 mg daily -Discharge planning: Plan on discharge home today as long as continues to remain stable. Lab Results 02/05/23 Range/Units 06:42 WBC 11.22 H (4.8-10.8) K/ul RBC 4.14 L (4.20-5.40) M/uL Hgb 12.4 (12.0-16.0) g/dl Hct 37.7 (37.0-47.0) % MCV 91.1 (80.0-100.0) fL MCH 30.0 (25.0-34.0) pg MCHC 32.9 (32.0-36.0) g/dL RDW Std Deviation 42.2 (36.4-46.3) fL RDW Coeff of Vicente 12.6 (11.5-14.5) % Plt Count 260 (130-400) K/uL MPV 9.5 (9.4-12.4) fL Immature Gran % (Auto) 0.7 % Neut % (Auto) 76.4 % Lymph % (Auto) 16.6 % [place] % (Auto) 6.1 % Eos % (Auto) 0.0 % Baso % (Auto) 0.2 % Neut # (Auto) 8.58 H (1.40-6.50) K/uL Lymph # (Auto) 1.86 (1.20-3.40) K/uL [place] # (Auto) 0.68 H (0.11-0.59) K/uL Eos # (Auto) 0.00 (0.00-0.50) K/uL Baso # (Auto) 0.02 (0.00-0.20) K/uL Immature Gran # (Auto) 0.08 (0.01-0.20) K/uL Sodium 137 (136-145) mmol/L Potassium 4.4 (3.5-5.1) mmol/L Chloride 105 (98-107) mmol/L Carbon Dioxide 28 (21-32) mmol/L Anion Gap 4 (3-11) BUN 23 (6-23) mg/dl Creatinine 1.12 (0.6-1.2) mg/dl Est Cr Clr Drug Dosing 59.6 ml/min Est GFR ( Amer) 62.3 ml/min Est GFR (Non-Af Amer) 53.7 ml/min BUN/Creatinine Ratio 20.5 H (10-20) Glucose 112 H (70-99(Fasting)) mg/dl Calcium 9.0 (8.6-10.3) mg/dl Total Time Total Time Spent Total Time Spent (In Minutes): 20 Discharge Plan Discharge Items Patient Disposition: Home - Self-Care Reason For Visit: Left Shoulder Primary Osteoarthritis, Left Shoulde Discharge Diagnosis: Left shoulder osteoarthritis Activity: Per Instructions section Non-emergency contact: Surgeon Call non-emergency contact if: you have any medication questions, your pain is not controlled, your pain is concerning for you, you have a fever, your temperature is above 101, your wound has increased redness and your wound has increased drainage Follow-up/Referrals: Filemon Phillips V., [Primary Care Provider] - Diet: Regular Addtl Attending Provider Instructions: ACTIVITY RECOMMENDATIONS: SELF CARE INSTRUCTIONS AFTER TOTAL SHOULDER ARTHROPLASTY A. You may do daily exercises as taught in physical therapy while in hospital. No lifting with the operative arm. Please schedule your outpatient physical therapy appointment to begin within 2-3 days after leaving the hospital. Specific restrictions will be written on your physical therapy prescription that is provided to you. B. You are to wear your sling/immobilizer at all times EXCEPT when performing your daily exercises, participating in physical therapy and for hygiene purposes. C. You may perform dry, daily dressing changes. Please keep your incision covered. You may shower 48 hours after surgery. Do not apply soap or any ointment/lotions directly over incision. Do not soak incision in bath tub/swimming pool. D. You may use ice as needed to operative shoulder. SPECIAL CARE INSTRUCTIONS: MEDICATION INSTRUCTIONS: *It is recommended you take Aspirin 81mg daily for four weeks post-op. VERY IMPORTANT TO READ AND REVIEW A. There are a few signs you need to watch for after you are home. Call [facility] at [phone] if you experience any of the followin. Increased severe shoulder pain. Some pain is expected especially when you exercise. 2. Increased swelling in you shoulder or arm; pain or swelling in either upper extremity. 3. Any fluid drainage from the incision. 4. Shortness of breath or chest pain. B. Please call [facility] at [phone] if you have any questions or concerns about your operation or recovery. C. Call your physician if: 1. Temperature is greater than 101 degrees (F). 2. Pain is not relieved by prescribed pain medications. 3. Increase drainage or redness from incision. 4. Unanswered questions or concerns. FOLLOW UP VISIT: Please call [facility] at [phone] to schedule a follow up appointment with Dr. Quintanilla or his PA in 12-14 days from your surgery date. Stand-Alone Forms: My [facility] [employer], Smoking Cessation Medications and DC Order Prescriptions: New aspirin 81 mg Tablet,Delayed Release (Dr/Ec) 81 mg PO QAM Qty: 30 0RF hydrocodone-acetaminophen 7.5-325 mg Tablet 1 tab PO Q6H PRN (Reason: pain) Qty: 12 0RF Rx Instructions: Initial therapy, Dr. Quintanilla supervising Continued fentanyl 100 mcg/hr Patch 72 Hour 1 patch TRANSDERMAL Q72H Rx Instructions: WITH 75 MCG hydrocodone-acetaminophen 7.5-300 mg Tablet 1 tab PO Q6H PRN (Reason: Pain) multivitamin Tablet 1 tab PO BID [id number]-brfqmsohlzeil-tmde 50-325-40 mg Capsule 1 cap PO Q6H PRN (Reason: Migraine Headache) topiramate 100 mg Tablet 100 mg PO BID potassium chloride 20 mEq Tablet Extended Release 20 meq PO BID cyanocobalamin (vitamin B-12) 5,000 mcg Capsule 5,000 mcg PO Q7D Rx Instructions: SUNDAYS fentanyl 50 mcg/hr Patch 72 Hour 1 patch TRANSDERMAL Q72H Rx Instructions: with 100mcg calcium carbonate-vitamin D3 600 mg-5 mcg (200 unit) Tablet 1 tab PO BID omeprazole 20 mg Capsule,Delayed Release(Dr/Ec) 40 mg PO QAM furosemide 20 mg Tablet 20 mg PO BID PRN (Reason: Edema) Discharge Orders: Discharge Order (Routine); Ordered 02/05/23 Ordered By: Jigar Vanegas/Other Patient Handouts: Understanding Deep Vein Thrombosis, DVT Post Op Prevention Admission Data Admit Date/Time: 02/04/23 12:07 Attending Provider: Bryce Quintanilla Admit Provider: Bryce Quintanilla Primary Care Provider: Filemon Phillips V. Other Providers: Becca Miller; Shay Daniel; [facility] Other Interventions: Discharge Summary Assessment (RN) Last Done: 02/05/23 09:49
[2023-02-06] MEDS ORDERED: [UNRECOGNIZED DRUG - REMARK] SCH (10:59)
[2023-02-06] MEDS ORDERED: fentaNYL 100 MCG/HR TDSY TD SCH (11:00)
== END 2023-02-05 11:06 | disposition home or self-care (01) ==
LOC: 3W 08:13 → ASU 08:13